=== PATIENT | female | born 2000 | race Caucasian/White ===

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

== ENCOUNTER 2021-08-02 16:08 | Inpatient (IN) | payer MEDICAID, OTHER ==
--- NOTE | 2021-08-02 17:15 | ED ---
General Adult HPI - General Chief complaint: Psychiatric Symptoms Stated complaint: Depression Time Seen by Provider: 08/02/21 16:56 Source: patient, police Mode of arrival: ambulatory Limitations: no limitations - History of Present Illness Initial comments: Dictation was produced using [employer] dictation software. please excuse any grammatical, word or spelling errors. Chief Complaint: 21-year-old female presents with suicidal ideation History of Present Illness: 21-year-old female she's been feeling sad and suicidal for the last several days. She highly contemplated suicide attempt on Sunday. She plans to cut her wrist and throat. She does see a counselor. She was told by her primary care doctor that if she doesn't feel comfortable talking to the cost that she come to her office. She went to PCPs office told to come to the emergency department. Patient states that she is sad and depressed for a myriad of reasons. Denies any homicidal ideation. Patient has no medical complaints. The ROS documented in this emergency department record has been reviewed and confirmed by me. Those systems with pertinent positive or negative responses have been documented in the HPI. All other systems are other negative and/or noncontributory. PHYSICAL EXAM: General Impression: Alert and oriented x3, not in acute distress HEENT: Normocephalic atraumatic, extra-ocular movements intact, pupils equal and reactive to light bilaterally, mucous membranes moist. Cardiovascular: Heart regular rate and rhythm Chest: Able to complete full sentences, no retractions, no tachypnea Abdomen: abdomen soft, non-tender, non-distended, no organomegaly Musculoskeletal: Pulses present and equal in all extremities, no peripheral edema Motor: no focal deficits noted Neurological: CN II-XII grossly intact, no focal motor or sensory deficits noted Skin: Intact with no visualized rashes Psych: Normal affect and mood ED course: 21-year-old female feeling suicidal. Physical examination is unremarkable. Vital signs are within acceptable limits. Patient medically cleared for EPS evaluation. Patient was advised by EPS and recommended psychiatric inpatient admission. - Related Data Home Medications Medication Instructions Recorded Confirmed Albuterol Sulfate [Proair Hfa] 2 puff INHALATION RT-Q6H PRN 08/02/21 08/02/21 Citalopram Hydrobromide [CeleXA] 20 mg PO DAILY 08/02/21 08/02/21 Pantoprazole Sodium [Protonix] 20 mg PO DAILY 08/02/21 08/02/21 Allergies Allergy/AdvReac Type Severity Reaction Status Date / Time Penicillins Allergy Anaphylaxis Verified 08/02/21 17:41 Review of Systems ROS Statement: Those systems with pertinent positive or pertinent negative responses have been documented in the HPI. ROS Other: All systems not noted in ROS Statement are negative. Past Medical History Past Medical History: Asthma History of Any Multi-Drug Resistant Organisms: None Reported Past Surgical History: No Surgical Hx Reported Past Psychological History: Anxiety, Depression Smoking Status: Current some day smoker Past Alcohol Use History: Heavy Past Drug Use History: Marijuana General Exam Limitations: no limitations Course Vital Signs 08/02/21 16:53 Temperature 98.7 F Pulse Rate 88 Respiratory 16 Rate Blood Pressure 126/88 O2 Sat by Pulse 100 Oximetry Medical Decision Making - Lab Data Lab Results 08/02/21 08/02/21 Range/Units 17:13 17:13 Urine HCG, Qual Not Detected (Not Detectd) Urine Opiates Screen Not Detected (NotDetected) Ur Oxycodone Screen Not Detected (NotDetected) Urine Methadone Screen Not Detected (NotDetected) Ur Propoxyphene Screen Not Detected (NotDetected) Ur Barbiturates Screen Not Detected (NotDetected) U Tricyclic Antidepress Not Detected (NotDetected) Ur Phencyclidine Scrn Not Detected (NotDetected) Ur Amphetamines Screen Not Detected (NotDetected) U Methamphetamines Scrn Not Detected (NotDetected) U Benzodiazepines Scrn Not Detected (NotDetected) Urine Cocaine Screen Not Detected (NotDetected) U Marijuana (THC) Screen Detected H (NotDetected) Disposition Clinical Impression: Suicidal ideation Disposition[facility] Condition: Fair Referrals: Cole Harmon MD [Primary Care Provider] - 1-2 days
[2021-08-02 17:34] LABS: Amphetamine Screen,Urine Not Detected (NotDetected); Barbiturate Screen,Urine Not Detected (NotDetected); Benzodiazepines Screen,Urine Not Detected (NotDetected); Cocaine Screen,Urine Not Detected (NotDetected); Methadone Screen, Urine Not Detected (NotDetected); Opiate Screen,Urine Not Detected (NotDetected); Oxycodone Screen, Urine Not Detected (NotDetected); Phencyclidine Screen,Urine Not Detected (NotDetected); Tricyclic Antidepressant,Urine Not Detected (NotDetected); Urn Cannabinoid Scrn Detected (NotDetected)
[2021-08-02] MEDS ORDERED: ACETAMINOPHEN TAB 325 MG TAB PO STA (17:41)
[2021-08-02] MEDS ORDERED: ALBUTEROL INHALER 60 PUFF/8 GM INHALER (MHU) INHALATION PRN (21:40)
[2021-08-02] MEDS ORDERED: ACETAMINOPHEN TAB 325 MG TAB PO PRN (21:41)
[2021-08-02] MEDS ORDERED: MAGNESIUM HYDROXIDE 2,400 MG/10 ML CUP PO PRN (21:41)
[2021-08-02] MEDS ORDERED: LORazepam 1 MG TAB PO PRN (21:41)
[2021-08-02] MEDS ORDERED: MAG HYDROX/AL HYDROX/SIMETH 30 ML CUP PO PRN (21:41)
[2021-08-02] MEDS ORDERED: LORazepam 2 MG/ML INJ IM PRN (21:44)
[2021-08-02] MEDS ORDERED: haloperidoL 1 MG TAB PO PRN (21:44)
[2021-08-02] MEDS ORDERED: HALOPERIDOL LACTATE 5 MG/ML 1 ML VIAL IM PRN (21:44)
[2021-08-03 00:08] VITALS: RESP 16
[2021-08-03 06:45] VITALS: PULSE 76
[2021-08-03 07:22] LABS: Basophils % (A) 1 %; Eosinophils # (A) 0.1 k/uL (0-0.7); Eosinophils % (A) 1 %; HCT 38.7 % (34.0-46.0); HGB 12.8 gm/dL (11.4-16.0); Lymphocytes # (A) 3.1 k/uL (1.0-4.8); Lymphocytes % (A) 50 %; MCHC 33.1 g/dL (31.0-37.0); MCV 99.7 fL (80.0-100.0); Mean Platelet Volume 7.3; Monocytes # (A) 0.3 k/uL (0-1.0); Monocytes % (A) 5 %; Neutrophils # (A) 2.7 k/uL (1.3-7.7); Neutrophils % (A) 42 %; Platelet Count 292 k/uL (150-450); RBC 3.88 m/uL (3.80-5.40); WBC 6.3 k/uL (3.8-10.6)
[2021-08-03 07:40] LABS: ALT 7 U/L (4-34); AST 20 U/L (14-36); African American GFR (CKD) >90 (>60 ml/min/1.73 sqM); Albumin 3.6 g/dL (3.5-5.0); Alkaline Phosphatase 53 U/L (38-126); Anion Gap 8 mmol/L; Blood Urea Nitrogen 10 mg/dL (7-17); Calcium 9.2 mg/dL (8.4-10.2); Carbon Dioxide 24 mmol/L (22-30); Chloride 107 mmol/L (98-107); Glucose 75 mg/dL (74-99); Non-African American GFR(CKD) >90 (>60 ml/min/1.73 sqM); Potassium 3.9 mmol/L (3.5-5.1); Sodium 139 mmol/L (137-145); Total Bilirubin 1.1 mg/dL (0.2-1.3); Total Protein 6.3 g/dL (6.3-8.2)
[2021-08-03] MEDS: CITALOPRAM HYDROBROMIDE 20 MG TAB PO SCH (08:11)
[2021-08-03] MEDS: PANTOPRAZOLE 40 MG TABLET PO SCH (08:11)
[2021-08-03] MEDS ORDERED: ONDANSETRON 4 MG TAB PO PRN (11:11)
[2021-08-03] MEDS ORDERED: ONDANSETRON 4 MG TAB PO STA (11:11)
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
[2021-08-03 12:37] LABS: Chol/HDL Ratio 2.34; Cholesterol 117 mg/dL (0-200)
--- NOTE | 2021-08-03 18:27 | CONS ---
CONSULTATION CHIEF COMPLAINT: Major depression with suicidal thoughts. HISTORY OF PRESENT ILLNESS: This 21-year-old -[place] female was in the office the day of admission, expressing extreme depression with suicidal thoughts. She agreed to go to the emergency room for evaluation and was thence admitted to the psych unit. REVIEW OF SYSTEMS: She denies any headaches, neurologic problems, chest pain, shortness of breath, abdominal pain, diarrhea, melena, etc. She is somewhat nauseated at this time. She denies any renal disease, hematuria, frequency, urgency, dysuria, incontinence, vaginal discharge or bleeding, diabetes, etc. Past medical history, family history, and personal and social histories demonstrate that she is ALLERGIC TO BUPROPION, PROZAC, and PENICILLIN. Current medications include citalopram 20 mg once a day, ProAir, Protonix 20 mg once a day, and vitamin D. The rest of her history is essentially unremarkable. She has been admitted for psychiatric problems in the past. She smokes cigarettes and drinks alcohol occasionally. PHYSICAL EXAMINATION: Blood pressure 120/80, pulse 71, respirations of 18. She is afebrile. In general she appeared to be well developed, well nourished, in no acute distress. Skin color was normal. Skin was warm and dry. Lymph nodes were not enlarged. Head, ears, eyes, nose, mouth and throat were normal. Neck veins were not distended. Chest was clear. Cardiac exam was normal. Abdomen was soft, nontender. Extremities were normal. Neurologically she is intact. She is admitted to the hospital with diagnoses: 1. Major depression. 2. History of asthma. 3. Nausea. RECOMMENDATIONS: None at this time. Her medications could be causing her nausea. MMODL / IJN: [id number] /
[2021-08-03] MEDS ORDERED: PRAZOSIN 1 MG CAP PO SCH (21:00)
[2021-08-04 07:24] VITALS: BP 98/60; TEMP 98
[2021-08-04] MEDS: PANTOPRAZOLE 40 MG TABLET PO SCH (08:20)
[2021-08-04] MEDS: CITALOPRAM HYDROBROMIDE 20 MG TAB PO SCH (08:20)
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
== END 2021-08-04 14:17 | disposition home or self-care (01) | DRG 885 ==
LOC: EC 16:08 → 3MHU 20:26
PROVIDERS: ADMIT Psychiatry & Neurology Psychiatry; ATTEND Psychiatry & Neurology Psychiatry
DX: F33.2 Major depressive disorder, recurrent severe without psychotic features (principal); R45.851 Suicidal ideations; Z20.822 Contact with and (suspected) exposure to COVID-19; F10.10 Alcohol abuse, uncomplicated; J45.909 Unspecified asthma, uncomplicated; F12.10 Cannabis abuse, uncomplicated; F17.200 Nicotine dependence, unspecified, uncomplicated; F43.10 Post-traumatic stress disorder, unspecified; R11.0 Nausea; F60.89 Other specific personality disorders; Z71.89 Other specified counseling; Z79.899 Other long term (current) drug therapy; Z91.5 Personal history of self-harm; Z71.41 Alcohol abuse counseling and surveillance of alcoholic; Z71.51 Drug abuse counseling and surveillance of drug abuser; Z88.0 Allergy status to penicillin; Z88.6 Allergy status to analgesic agent; Z88.8 Allergy status to other drugs, medicaments and biological substances
CPT/HCPCS: 80053; 80061; 80306; 81025; 82075; 83036; 84443; 85025; 87635; 99285

== ENCOUNTER 2021-09-09 22:39 | Emergency (ER) | payer OTHER ==
[2021-09-09 22:46] VITALS: TEMP 99.2
[2021-09-09] MEDS ORDERED: OXYMETAZOLINE 0.05% NASL SPRAY 1 SPRAY BOTTLE NASAL STA (23:13)
--- NOTE | 2021-09-10 00:11 | ED ---
ENT HPI - General Chief complaint: ENT Stated complaint: Bloody Nose Time Seen by Provider: 09/09/21 22:47 Source: family Mode of arrival: ambulatory Limitations: no limitations - History of Present Illness Initial comments: 21 year-old female patient presents to the emergency department for evaluation of nose bleed. States it has been bleeding for the last two hours. States she has been sick with nasal congestion and drainage for the last three days. Denies history of nose bleeds or abnormal or easy bruising. She states that she tried applying ice and holding pressure at the bridge of her nose without relief. She denies use of blood thinning medications. States she has been taking ibuprofen for the last three days. She denies any facial trauma. - Related Data Home Medications Medication Instructions Recorded Confirmed Albuterol Sulfate [Proair Hfa] 2 puff INHALATION RT-Q6H PRN 08/02/21 08/02/21 Pantoprazole Sodium [Protonix] 20 mg PO DAILY 08/02/21 08/02/21 Previous Rx's Medication Instructions Recorded Citalopram Hydrobromide [CeleXA] 20 mg PO DAILY 30 Days tab 08/04/21 Ondansetron [Zofran] 4 mg PO Q8HR PRN 3 Days tab 08/04/21 Prazosin [Minipress] 1 mg PO HS 30 Days cap 08/04/21 Allergies Allergy/AdvReac Type Severity Reaction Status Date / Time Penicillins Allergy Anaphylaxis Verified 09/09/21 22:46 Review of Systems ROS Statement: Those systems with pertinent positive or pertinent negative responses have been documented in the HPI. ROS Other: All systems not noted in ROS Statement are negative. Past Medical History Past Medical History: Asthma History of Any Multi-Drug Resistant Organisms: None Reported Past Surgical History: No Surgical Hx Reported Past Psychological History: Anxiety, Depression Smoking Status: Current some day smoker Past Alcohol Use History: Heavy Past Drug Use History: Marijuana General Exam Limitations: no limitations General appearance: alert, in no apparent distress, other (This is a well- developed, well-nourished adult female patient in no acute distress.) ENT exam: Present: normal oropharynx, mucous membranes moist, other (Bright red blood from bilateral nostrils) Respiratory exam: Present: normal lung sounds bilaterally. Absent: respiratory distress, wheezes, rales, rhonchi, stridor Cardiovascular Exam: Present: regular rate, normal rhythm, normal heart sounds. Absent: systolic murmur, diastolic murmur, rubs, gallop, clicks Neurological exam: Present: alert, oriented X3, CN II-XII intact Psychiatric exam: Present: normal affect, normal mood Skin exam: Present: warm, dry, intact, normal color. Absent: rash Course Vital Signs 09/09/21 09/10/21 22:42 00:11 Temperature 99.2 F Pulse Rate 85 63 Respiratory 20 18 Rate Blood Pressure 147/98 154/89 O2 Sat by Pulse 100 99 Oximetry Medical Decision Making - Medical Decision Making 21-year-old female patient presents to the emergency department today for evaluation of nosebleed. Physical examination did reveal bilateral red blood from bilateral nostrils. It had patient brought all the blood clots, packed with Afrin soaked gauze afte spraying with Afrin. Apply pressure for approximately 20 minutes. Upon reevaluation bleeding had ceased. She was monitored again for another 30 minutes, was able to ablate the department without any rebleeding. She is discharged to follow-up with her primary care physician for recheck in 1-2 days. Instructed to follow-up with ENT if she has persistent bleeding. Return p arameters were discussed in detail. She verbalizes understanding and agrees with this plan. My attending is Dr. Peralta. Disposition Clinical Impression: Epistaxis Disposition: HOME SELF-CARE Condition: Good Instructions (If sedation given, give patient instructions): Nosebleed (ED) Additional Instructions: Follow-up with ENT if needed. Follow up with the primary care physician for recheck in 1-2 days. Return for any new, worsening, or concerning symptoms. Is patient prescribed a controlled substance at d/c from ED?: No Referrals: Cole Harmon MD [Primary Care Provider] - 1-2 days Dillon Enrique MD [STAFF PHYSICIAN] - 1-2 days Time of Disposition: 00:11
[2021-09-10 00:12] VITALS: BP 154/89; PULSE 63; RESP 18
== END 2021-09-10 00:32 | disposition home or self-care (01) ==
LOC: EC 22:39
DX: R04.0 Epistaxis (principal); F17.200 Nicotine dependence, unspecified, uncomplicated; J45.909 Unspecified asthma, uncomplicated; Z88.0 Allergy status to penicillin
CPT/HCPCS: 99283

== ENCOUNTER 2021-11-17 23:46 | Emergency (ER) | payer OTHER ==
[2021-11-18] VITALS: RESP 18
[2021-11-18] MEDS ORDERED: ACETAMINOPHEN TAB 500 MG TAB PO STA (00:01)
[2021-11-18] MEDS ORDERED: IBUPROFEN 600 MG TAB PO STA (01:16)
[2021-11-18] MEDS ORDERED: ONDANSETRON 4 MG ODT STARTER PACK 2 TAB BTL PO STA (01:16)
[2021-11-18] MEDS ORDERED: DICYCLOMINE 20 MG TAB PO STA (01:17)
--- NOTE | 2021-11-18 01:18 | ED ---
General Adult HPI - General Chief complaint: Fever Stated complaint: Right side abdominal pain Time Seen by Provider: 11/18/21 01:03 Source: patient Mode of arrival: wheelchair Limitations: physical limitation - History of Present Illness Initial comments: 21-year-old female patient presents to the emergency department today for evaluation of fever, chills, abdominal cramping, diarrhea. States symptoms started earlier today. She does report mild intermittent cough. States people in her home are sick with similar symptoms. She denies taking any medication for his symptoms. Denies any chance of . Patient denies any recent rash, shortness of breath, chest pain, constipation, back pain, numbness, tingling, dizziness, weakness, hematuria, dysuria, urinary urgency, urinary frequency, headache, visual changes, or any other complaints. - Related Data Home Medications Medication Instructions Recorded Confirmed Albuterol Sulfate [Proair Hfa] 2 puff INHALATION RT-Q6H PRN 08/02/21 08/02/21 Pantoprazole Sodium [Protonix] 20 mg PO DAILY 08/02/21 08/02/21 Previous Rx's Medication Instructions Recorded Citalopram Hydrobromide [CeleXA] 20 mg PO DAILY 30 Days tab 08/04/21 Ondansetron [Zofran] 4 mg PO Q8HR PRN 3 Days tab 08/04/21 Prazosin [Minipress] 1 mg PO HS 30 Days cap 08/04/21 Dicyclomine [Bentyl] 20 mg PO QID #20 tablet 11/18/21 Ondansetron [Zofran ODT] 4 mg PO Q8HR PRN #10 tab 11/18/21 Allergies Allergy/AdvReac Type Severity Reaction Status Date / Time Penicillins Allergy Anaphylaxis Verified 11/18/21 00:00 Review of Systems ROS Statement: Those systems with pertinent positive or pertinent negative responses have been documented in the HPI. ROS Other: All systems not noted in ROS Statement are negative. Past Medical History Past Medical History: Asthma History of Any Multi-Drug Resistant Organisms: None Reported Past Surgical History: No Surgical Hx Reported Past Psychological History: Anxiety, Depression Smoking Status: Current some day smoker Past Alcohol Use History: Occasional Past Drug Use History: Marijuana General Exam Limitations: physical limitation General appearance: alert, in no apparent distress, other (This is a well- developed, well-nourished adult female in no acute distress.) Eye exam: Present: normal appearance, PERRL, EOMI. Absent: scleral icterus, conjunctival injection, periorbital swelling ENT exam: Present: normal exam, normal oropharynx, mucous membranes moist, TM's normal bilaterally Respiratory exam: Present: normal lung sounds bilaterally. Absent: respiratory distress, wheezes, rales, rhonchi, stridor Cardiovascular Exam: Present: regular rate, normal rhythm, normal heart sounds. Absent: systolic murmur, diastolic murmur, rubs, gallop, clicks GI/Abdominal exam: Present: soft, normal bowel sounds. Absent: distended, tenderness, guarding, rebound, rigid Neurological exam: Present: alert, oriented X3, CN II-XII intact Psychiatric exam: Present: normal affect, normal mood Skin exam: Present: warm, dry, intact, normal color. Absent: rash Course Vital Signs 11/17/21 23:56 Temperature 101.6 F H Pulse Rate 97 Respiratory 18 Rate Blood Pressure 127/75 O2 Sat by Pulse 100 Oximetry Medical Decision Making - Medical Decision Making 21-year-old female patient presents to the emergency department today for evaluation of fever, abdominal pain, diarrhea, cough. Physical examination is unremarkable. Lungs are clear to auscultation with good air movement. Abdomen is soft and nontender. She did test positive for COVID-19. She will be given Zofran, Bentyl, antipyretic medication. She is discharged with prescription for the same. She is instructed to follow-up the primary care physician for recheck in 1-2 days. Return parameters were discussed in detail. She verbalizes understanding and agrees with this plan. My attending is Dr. Peralta. - Lab Data Lab Results 11/18/21 Range/Units 00:01 Coronavirus (PCR) Detected A (Not Detectd) Disposition Clinical Impression: COVID-19 Disposition: HOME SELF-CARE Condition: Good Instructions (If sedation given, give patient instructions): Coronavirus Disease 2019 (COVID-19), Fever in Adults (ED) Additional Instructions: Tips to help you feel better: -Maintain adequate fluid intake - especially water. -Rest, you are healing your body will require extra sleep. -Eat even if you do not feel like it - broth, jello, toast are fine if you cannot eat full meals. -Take tylenol and motrin alternating (if you have no allergies or have not been instructed to avoid these medications) to help with body aches and fevers. -Obtain over the counter vitamin C, zinc, and vitamin D3. -Take medications as prescribed. Follow-up with your primary care physician for recheck in 1-2 days. Return for any new, worsening, or concerning symptoms. Prescriptions: Dicyclomine [Bentyl] 20 mg PO QID #20 tablet Ondansetron [Zofran ODT] 4 mg PO Q8HR PRN #10 tab PRN Reason: Nausea Is patient prescribed a controlled substance at d/c from ED?: No Referrals: Cole Harmon MD [Primary Care Provider] - 1-2 days Time of Disposition: 01:18
[2021-11-18 01:57] VITALS: BP 119/75; PULSE 82; TEMP 98.4
== END 2021-11-18 01:59 | disposition home or self-care (01) ==
LOC: EC 23:46
DX: U07.1 COVID-19 (principal); F17.200 Nicotine dependence, unspecified, uncomplicated; Z79.1 Long term (current) use of non-steroidal anti-inflammatories (NSAID); Z88.0 Allergy status to penicillin; Z88.8 Allergy status to other drugs, medicaments and biological substances
CPT/HCPCS: 87635; 99284; S0119; 99283

== ENCOUNTER 2023-03-06 02:49 | Emergency (ER) | payer OTHER ==
[2023-03-06 02:56] VITALS: RESP 18
--- NOTE | 2023-03-06 04:18 | XR ---
EXAM: XR Chest, 2 Views CLINICAL HISTORY: ITS.REASON XR Reason: chest pain TECHNIQUE: Frontal and lateral views of the chest. COMPARISON: No relevant prior studies available. FINDINGS: Lungs: No consolidation or mass. Pleural space: No effusion. Heart: No cardiomegaly. Bones/joints: No acute findings. IMPRESSION: No acute cardiopulmonary process.
--- NOTE | 2023-03-06 04:27 | ED ---
Chest Pain HPI - General Chief Complaint: Chest Pain Stated Complaint: Difficulty Breathing, Chest Pain, back pain Time Seen by Provider: 03/06/23 03:10 Source: patient, family Mode of arrival: ambulatory Limitations: no limitations - History of Present Illness Initial Comments: This patient is a 22-year-old woman who presents with complaint that she is having spasms. She states that it feels like she is having cramping and spasming on the left side of her chest and back. It started in the evening and when it continued she felt she should be seen here. She has not noted a coming symptoms other than when the spasms come on it limits her taking a deep breath. No fever or chills. No cough, sputum or hemoptysis. MD Complaint: chest pain -: hour(s) Onset: during rest Pain Location: left chest Pain Radiation: none Quality: tightness Consistency: intermittent, now resolved Improves With: nothing Worsens With: movement Treatments Prior to Arrival: none - Related Data Home Medications Medication Instructions Recorded Confirmed Albuterol Sulfate [Proair Hfa] 2 puff INHALATION RT-Q6H PRN 08/02/21 08/02/21 Pantoprazole Sodium [Protonix] 20 mg PO DAILY 08/02/21 08/02/21 Previous Rx's Medication Instructions Recorded Citalopram Hydrobromide [CeleXA] 20 mg PO DAILY 30 Days tab 08/04/21 Ondansetron [Zofran] 4 mg PO Q8HR PRN 3 Days tab 08/04/21 Prazosin [Minipress] 1 mg PO HS 30 Days cap 08/04/21 Dicyclomine [Bentyl] 20 mg PO QID #20 tablet 11/18/21 Ondansetron [Zofran ODT] 4 mg PO Q8HR PRN #10 tab 11/18/21 Ibuprofen [Motrin] 600 mg PO Q8HR PRN #15 tab 03/06/23 Allergies Allergy/AdvReac Type Severity Reaction Status Date / Time Penicillins Allergy Anaphylaxis Verified 03/06/23 02:57 Review of Systems ROS Statement: Those systems with pertinent positive or pertinent negative responses have been documented in the HPI. ROS Other: All systems not noted in ROS Statement are negative. Constitutional: Denies: fever, chills, weakness Respiratory: Reports: as per HPI, dyspnea. Denies: cough, wheezes, hemoptysis Cardiovascular: Reports: as per HPI, chest pain. Denies: palpitations, orthopnea, edema, syncope Gastrointestinal: Denies: abdominal pain, nausea, vomiting Musculoskeletal: Reports: as per HPI, back pain Skin: Denies: rash Neurological: Denies: headache, weakness EKG Findings - EKG Results: EKG: interpreted by ALIA, sinus rhythm (With sinus arrhythmia. Rate 61 bpm), normal axis, normal QRS, normal ST/T Past Medical History Past Medical History: Asthma History of Any Multi-Drug Resistant Organisms: None Reported Past Surgical History: No Surgical Hx Reported Past Psychological History: Anxiety, Depression Smoking Status: Current some day smoker, Vaper Past Alcohol Use History: Occasional Past Drug Use History: Marijuana General Exam Limitations: no limitations General appearance: alert, in no apparent distress Head exam: Present: atraumatic, normocephalic Eye exam: Present: normal appearance. Absent: scleral icterus, conjunctival injection Neck exam: Present: normal inspection Respiratory exam: Present: normal lung sounds bilaterally, chest wall tenderness. Absent: respiratory distress, wheezes, rales, rhonchi, stridor, accessory muscle use Cardiovascular Exam: Present: regular rate, normal rhythm, normal heart sounds. Absent: systolic murmur, diastolic murmur, rubs, gallop GI/Abdominal exam: Present: soft. Absent: distended, tenderness, guarding, rebound, rigid, mass Back exam: Present: normal inspection, paraspinal tenderness. Absent: CVA tenderness (R), CVA tenderness (L) Neurological exam: Present: alert Skin exam: Present: warm, dry, intact, normal color. Absent: rash Course Vital Signs 03/06/23 03/06/23 03/06/23 02:50 03:48 03:53 Temperature 98.1 F 98.7 F Pulse Rate 88 68 Pulse Rate [ 71 Right Supine Art Historian ] Respiratory 18 18 Rate Blood Pressure 126/58 121/80 O2 Sat by Pulse 100 99 Oximetry 03/06/23 04:47 Temperature 98.9 F Pulse Rate 66 Pulse Rate [ Right Supine Art Historian ] Respiratory 18 Rate Blood Pressure 114/67 O2 Sat by Pulse 100 Oximetry Chest Pain [facility] - MDM This patient is a 22-year-old woman with no underlying medical issues presenting with spasms of the left side of her thorax that are intermittent. Not having symptoms in the department. There is mild tenderness that reproduces which she expresses when the ribs are palpated. The patient had chest x-ray here that is negative for infiltrate, and pneumothorax, rib fracture as interpreted by myself. The patient is feeling better, we discussed appropriate further care and follow- up as well as return parameters Was pt. sent in by a medical professional or institution (GARY Neumann, TRAY DRIER OPERATOR, urgent care, hospital, or halfway...) When possible be specific @ -[No] Did you speak to anyone other than the patient for history (EMS, parent, family, police, friend...)? What history was obtained from this source @ -[No] Did you review nursing and triage notes (agree or disagree)? Why? @ -[I reviewed and agree with nursing and triage notes] Were old charts reviewed (outside hosp., previous admission, EMS record, old EKG, old radiological studies, urgent care reports/EKG's, halfway records)? Report findings @ -[No old charts were reviewed] Differential Diagnosis (chest pain, altered mental status, abdominal pain women, abdominal pain men, vaginal bleeding, weakness, fever, dyspnea, syncope, headache, dizziness, GI bleed, back pain, seizure, CVA, palpatations, mental health, musculoskeletal)? @ -[The differential diagnosis includes musculoskeletal chest pains, pleuritic chest pain, pericarditis, amongst other conditions EKG interpreted by me (3pts min.). @ -[As above] X-rays interpreted by me (1pt min.). @ -[As above CT interpreted by me (1pt min.). @ -[None done] U/S interpreted by me (1pt. min.). @ -[None done] What testing was considered but not performed or refused? (CT, X-rays, U/S, labs)? Why? @ -[None] What meds were considered but not given or refused? Why? @ -[None] Did you discuss the management of the patient with other professionals (professionals i.e. GARY Neumann, TRAY DRIER OPERATOR, lab, RT, psych nurse, clinical social work aide, financial services auditor, teacher, postal sorting officer, employment case manager)? Give summary @ -[No] Was smoking cessation discussed for >3mins.? @ -[No] Was critical care preformed (if so, how long)? @ -[No] Were there social determinants of health that impacted care today? How? (Homelessness, low income, unemployed, alcoholism, drug addiction, transportation, low edu. Level, literacy, decrease access to med. care, snf, rehab)? @ -[No] Was there de-escalation of care discussed even if they declined (Discuss DNR or withdrawal of care, Hospice)? DNR status @ -[No] What co-morbidities impacted this encounter? (DM, HTN, Smoking, COPD, CAD, Cancer, CVA, ARF, Chemo, Hep., AIDS, mental health diagnosis, sleep apnea, morb id obesity)? @ -[None] Was patient admitted / discharged? Hospital course, mention meds given and route, prescriptions, significant lab abnormalities, going to OR and other pertinent info. @ -Discharged Undiagnosed new problem with uncertain prognosis? @ -[No] Drug Therapy requiring intensive monitoring for toxicity (Heparin, Nitro, Insulin, Cardizem)? @ -[No] Were any procedures done? @ -[No] Diagnosis/symptom? @ -[Chest wall pain Acute, or Chronic, or Acute on Chronic? @ -[Acute Uncomplicated (without systemic symptoms) or Complicated (systemic symptoms)? @ -[Uncomplicated Side effects of treatment? @ -[No] Exacerbation, Progression, or Severe Exacerbation? @ -[No] Poses a threat to life or bodily function? How? (Chest pain, [place], [place], pneumonia, PE, COPD, DKA, ARF, appy, cholecystitis, CVA, Diverticulitis, Homicidal, Suicidal, threat to staff... and all critical care pts) @ -[No] Disposition Clinical Impression: Chest pain Disposition: HOME SELF-CARE Condition: Good Instructions (If sedation given, give patient instructions): Chest Pain (ED) Prescriptions: Ibuprofen [Motrin] 600 mg PO Q8HR PRN #15 tab PRN Reason: Pain Is patient prescribed a controlled substance at d/c from ED?: No Referrals: Cole Harmon MD [Primary Care Provider] - 1-2 days
[2023-03-06 04:49] VITALS: BP 114/67; PULSE 66; TEMP 98.9
== END 2023-03-06 04:49 | disposition home or self-care (01) ==
LOC: EC 02:49
DX: R07.89 Other chest pain (principal); J45.909 Unspecified asthma, uncomplicated; F41.9 Anxiety disorder, unspecified; F32.A Depression, unspecified; F17.290 Nicotine dependence, other tobacco product, uncomplicated; F12.90 Cannabis use, unspecified, uncomplicated; Z79.899 Other long term (current) drug therapy; Z88.0 Allergy status to penicillin
CPT/HCPCS: 71046; 93005; 99285

== ENCOUNTER 2023-05-27 21:04 | Emergency (ER) | payer OTHER ==
[2023-05-27] MEDS ORDERED: SODIUM CHLORIDE 0.9% 1,000 ML IV STA (21:57)
[2023-05-27] MEDS ORDERED: MECLIZINE 12.5 MG TAB PO STA (21:57)
--- NOTE | 2023-05-27 22:36 | ED ---
General Adult HPI - General Chief complaint: Nausea/Vomiting/Diarrhea Stated complaint: Fatigued, feeling off Time Seen by Provider: 05/27/23 21:14 Source: patient Mode of arrival: ambulatory Limitations: no limitations - History of Present Illness Initial comments: 23 year old female presents with several episodes of dizziness, diaphoresis, palpitations and sensation that she is going to pass out. States it has been going on x 5 months. episodes last for an hour. Has associated blurred vision. no chest pain. mild shortness of breath. no fevers. admits thc use but states her symptoms are not associated with smoking. denies concern for - Related Data Home Medications Medication Instructions Recorded Confirmed Albuterol Sulfate [Proair Hfa] 2 puff INHALATION RT-Q6H PRN 08/02/21 08/02/21 Pantoprazole Sodium [Protonix] 20 mg PO DAILY 08/02/21 08/02/21 Previous Rx's Medication Instructions Recorded Citalopram Hydrobromide [CeleXA] 20 mg PO DAILY 30 Days tab 08/04/21 Ondansetron [Zofran] 4 mg PO Q8HR PRN 3 Days tab 08/04/21 Prazosin [Minipress] 1 mg PO HS 30 Days cap 08/04/21 Dicyclomine [Bentyl] 20 mg PO QID #20 tablet 11/18/21 Ondansetron [Zofran ODT] 4 mg PO Q8HR PRN #10 tab 11/18/21 Ibuprofen [Motrin] 600 mg PO Q8HR PRN #15 tab 03/06/23 Allergies Allergy/AdvReac Type Severity Reaction Status Date / Time Penicillins Allergy Anaphylaxis Verified 03/06/23 02:57 Review of Systems ROS Statement: Those systems with pertinent positive or pertinent negative responses have been documented in the HPI. ROS Other: All systems not noted in ROS Statement are negative. Past Medical History Past Medical History: Asthma History of Any Multi-Drug Resistant Organisms: None Reported Past Surgical History: No Surgical Hx Reported Past Psychological History: Anxiety, Depression Smoking Status: Current some day smoker, Vaper Past Alcohol Use History: Occasional Past Drug Use History: Marijuana General Exam Limitations: no limitations General appearance: alert, in no apparent distress Head exam: Present: atraumatic, normocephalic, normal inspection Eye exam: Present: normal appearance, PERRL, EOMI. Absent: scleral icterus, conjunctival injection, periorbital swelling ENT exam: Present: normal exam, mucous membranes moist Neck exam: Present: normal inspection. Absent: tenderness, meningismus, lymphadenopathy Respiratory exam: Present: normal lung sounds bilaterally. Absent: respiratory distress, wheezes, rales, rhonchi, stridor Cardiovascular Exam: Present: regular rate, normal rhythm, normal heart sounds. Absent: systolic murmur, diastolic murmur, rubs, gallop, clicks GI/Abdominal exam: Present: soft, normal bowel sounds. Absent: distended, tenderness, guarding, rebound, rigid Extremities exam: Present: normal inspection, full ROM, normal capillary refill. Absent: tenderness, pedal edema, joint swelling, calf tenderness Back exam: Present: normal inspection Neurological exam: Present: alert, oriented X3, CN II-XII intact Psychiatric exam: Present: normal affect, normal mood Skin exam: Present: warm, dry, intact, normal color. Absent: rash Course Vital Signs 05/27/23 05/28/23 21:12 00:57 Temperature 98.5 F 98.6 F Pulse Rate 70 75 Respiratory 20 16 Rate Blood Pressure 148/98 127/74 O2 Sat by Pulse 99 100 Oximetry Medical Decision Making - Medical Decision Making Was pt. sent in by a medical professional or institution (, PA, RESEARCH COORDINATOR, urgent care, hospital, or shelter...) When possible be specific @ -No Did you speak to anyone other than the patient for history (EMS, parent, family, police, friend...)? What history was obtained from this source @ -No Did you review nursing and triage notes (agree or disagree)? Why? @ -I reviewed and agree with nursing and triage notes Were old charts reviewed (outside hosp., previous admission, EMS record, old EKG, old radiological studies, urgent care reports/EKG's, shelter records)? Report findings @ -No old charts were reviewed Differential Diagnosis (chest pain, altered mental status, abdominal pain women, abdominal pain men, vaginal bleeding, weakness, fever, dyspnea, syncope, headache, dizziness, GI bleed, back pain, seizure, CVA, palpatations, mental health, musculoskeletal)? @ -covid, pneumonia, , thyroid disorder, hypoglycemia, electrolyte abnormality EKG interpreted by me (3pts min.). @ -Yes and demonstrates sinus enmanuel. rate of 58. no st segment elevation or depression X-rays interpreted by me (1pt min.). @ -no acute process CT interpreted by me (1pt min.). @ -None done U/S interpreted by me (1pt. min.). @ -None done What testing was considered but not performed or refused? (CT, X-rays, U/S, labs)? Why? @ -None What meds were considered but not given or refused? Why? @ -None Did you discuss the management of the patient with other professionals (professionals i.e. , PA, RESEARCH COORDINATOR, lab, RT, psych nurse, outreach and education social worker, tandem mill operator, teacher, airfield services officer, protective services case worker)? Give summary @ -no Was smoking cessation discussed for >3mins.? @ -No Was critical care preformed (if so, how long)? @ -No Were there social determinants of health that impacted care today? How? (Homelessness, low income, unemployed, alcoholism, drug addiction, transportation, low edu. Level, literacy, decrease access to med. care, penitentiary, rehab)? @ -No Was there de-escalation of care discussed even if they declined (Discuss DNR or withdrawal of care, Hospice)? DNR status @ -No What co-morbidities impacted this encounter? (DM, HTN, Smoking, COPD, CAD, Cancer, CVA, ARF, Chemo, Hep., AIDS, mental health diagnosis, sleep apnea, morbid obesity)? @ -none Was patient admitted / discharged? Hospital course, mention meds given and route, prescriptions, significant lab abnormalities, going to OR and other pertinent info. @ -discharged. suspected episodes likely due to hypoglycemia. patient needs to eat nutritious meals and follow up with pcp in 2-4 days Undiagnosed new problem with uncertain prognosis? @ -yes Drug Therapy requiring intensive monitoring for toxicity (Heparin, Nitro, Insulin, Cardizem)? @ -No Were any procedures done? @ -No Diagnosis/symptom? @ -acute pre syncope, hypoglycemia Acute, or Chronic, or Acute on Chronic? @ -acute Uncomplicated (without systemic symptoms) or Complicated (systemic symptoms)? @ -complicated Side effects of treatment? @ -No Exacerbation, Progression, or Severe Exacerbation? @ -No Poses a threat to life or bodily function? How? (Chest pain, [place], [place], pneumonia, PE, COPD, DKA, ARF, appy, cholecystitis, CVA, Diverticulitis, Homicidal, Suicidal, threat to staff... and all critical care pts) @ -No - Lab Data Result diagrams: 05/27/23 23:07 05/27/23 23:07 Lab Results 05/27/23 05/27/23 05/27/23 Range/Units 22:26 22:33 22:33 WBC (3.8-10.6) k/uL RBC (3.80-5.40) m/uL Hgb (11.4-16.0) gm/dL Hct (34.0-46.0) % MCV (80.0-100.0) fL MCH (25.0-35.0) pg MCHC (31.0-37.0) g/dL RDW (11.5-15.5) % Plt Count (150-450) k/uL MPV Neutrophils % % Lymphocytes % % Monocytes % % Eosinophils % % Basophils % % Neutrophils # (1.3-7.7) k/uL Lymphocytes # (1.0-4.8) k/uL Monocytes # (0-1.0) k/uL Eosinophils # (0-0.7) k/uL Basophils # (0-0.2) k/uL Sodium (137-145) mmol/L Potassium (3.5-5.1) mmol/L Chloride (98-107) mmol/L Carbon Dioxide (22-30) mmol/L Anion Gap mmol/L BUN (7-17) mg/dL Creatinine (0.52-1.04) mg/dL Est GFR (CKD-EPI)AfAm (>60 ml/min/1.73 sqM) Est GFR (CKD-EPI)NonAf (>60 ml/min/1.73 sqM) Glucose (74-99) mg/dL Plasma Lactic Acid Ignacio (0.7-2.0) mmol/L Calcium (8.4-10.2) mg/dL Total Bilirubin (0.2-1.3) mg/dL AST (14-36) U/L ALT (4-34) U/L Alkaline Phosphatase (38-126) U/L Troponin I (0.000-0.034) ng/mL Total Protein (6.3-8.2) g/dL Albumin (3.5-5.0) g/dL TSH (0.465-4.680) mIU/L Urine Color Light Yellow Urine Appearance Cloudy H (Clear) Urine pH 6.5 (5.0-8.0) Ur Specific Plover 1.014 (1.001-1.035) Urine Protein Negative (Negative) Urine Glucose (UA) Negative (Negative) Urine Ketones Negative (Negative) Urine Blood Negative (Negative) Urine Nitrite Negative (Negative) Urine Bilirubin Negative (Negative) Urine Urobilinogen <2.0 (<2.0) mg/dL Ur Leukocyte Esterase Negative (Negative) Urine WBC 1 (0-5) /hpf Ur Squamous Epith Cells 1 (0-4) /hpf Urine Bacteria Rare H (None) /hpf Urine Mucus Rare H (None) /hpf Urine HCG, Qual Not Detected (Not Detectd) Urine Opiates Screen Not Detected (NotDetected) Ur Oxycodone Screen Not Detected (NotDetected) Urine Methadone Screen Not Detected (NotDetected) Ur Propoxyphene Screen Not Detected (NotDetected) Ur Barbiturates Screen Not Detected (NotDetected) U Tricyclic Antidepress Not Detected (NotDetected) Ur Phencyclidine Scrn Not Detected (NotDetected) Ur Amphetamines Screen Not Detected (NotDetected) U Methamphetamines Scrn Not Detected (NotDetected) U Benzodiazepines Scrn Not Detected (NotDetected) Urine Cocaine Screen Not Detected (NotDetected) U Marijuana (THC) Screen Detected H (NotDetected) Coronavirus (PCR) Not Detected (Not Detectd) 05/27/23 05/27/23 05/27/23 Range/Units 23:07 23:07 23:07 WBC 6.8 (3.8-10.6) k/uL RBC 4.46 (3.80-5.40) m/uL Hgb 14.6 (11.4-16.0) gm/dL Hct 43.5 (34.0-46.0) % MCV 97.4 (80.0-100.0) fL MCH 32.7 (25.0-35.0) pg MCHC 33.6 (31.0-37.0) g/dL RDW 12.4 (11.5-15.5) % Plt Count 254 (150-450) k/uL MPV 8.1 Neutrophils % 54 % Lymphocytes % 37 % Monocytes % 5 % Eosinophils % 2 % Basophils % 0 % Neutrophils # 3.7 (1.3-7.7) k/uL Lymphocytes # 2.5 (1.0-4.8) k/uL Monocytes # 0.4 (0-1.0) k/uL Eosinophils # 0.1 (0-0.7) k/uL Basophils # 0.0 (0-0.2) k/uL Sodium 139 (137-145) mmol/L Potassium 4.1 (3.5-5.1) mmol/L Chloride 110 H (98-107) mmol/L Carbon Dioxide 18 L (22-30) mmol/L Anion Gap 11 mmol/L BUN 12 (7-17) mg/dL Creatinine 0.68 (0.52-1.04) mg/dL Est GFR (CKD-EPI)AfAm >90 (>60 ml/min/1.73 sqM) Est GFR (CKD-EPI)NonAf >90 (>60 ml/min/1.73 sqM) Glucose 70 L (74-99) mg/dL Plasma Lactic Acid Ignacio 1.7 (0.7-2.0) mmol/L Calcium 9.2 (8.4-10.2) mg/dL Total Bilirubin 1.1 (0.2-1.3) mg/dL AST 22 (14-36) U/L ALT 13 (4-34) U/L Alkaline Phosphatase 54 (38-126) U/L Troponin I (0.000-0.034) ng/mL Total Protein 6.8 (6.3-8.2) g/dL Albumin 4.0 (3.5-5.0) g/dL TSH 2.170 (0.465-4.680) mIU/L Urine Color Urine Appearance (Clear) Urine pH (5.0-8.0) Ur Specific Plover (1.001-1.035) Urine Protein (Negative) Urine Glucose (UA) (Negative) Urine Ketones (Negative) Urine Blood (Negative) Urine Nitrite (Negative) Urine Bilirubin (Negative) Urine Urobilinogen (<2.0) mg/dL Ur Leukocyte Esterase (Negative) Urine WBC (0-5) /hpf Ur Squamous Epith Cells (0-4) /hpf Urine Bacteria (None) /hpf Urine Mucus (None) /hpf Urine HCG, Qual (Not Detectd) Urine Opiates Screen (NotDetected) Ur Oxycodone Screen (NotDetected) Urine Methadone Screen (NotDetected) Ur Propoxyphene Screen (NotDetected) Ur Barbiturates Screen (NotDetected) U Tricyclic Antidepress (NotDetected) Ur Phencyclidine Scrn (NotDetected) Ur Amphetamines Screen (NotDetected) U Methamphetamines Scrn (NotDetected) U Benzodiazepines Scrn (NotDetected) Urine Cocaine Screen (NotDetected) U Marijuana (THC) Screen (NotDetected) Coronavirus (PCR) (Not Detectd) 05/27/23 Range/Units 23:07 WBC (3.8-10.6) k/uL RBC (3.80-5.40) m/uL Hgb (11.4-16.0) gm/dL Hct (34.0-46.0) % MCV (80.0-100.0) fL MCH (25.0-35.0) pg MCHC (31.0-37.0) g/dL RDW (11.5-15.5) % Plt Count (150-450) k/uL MPV Neutrophils % % Lymphocytes % % Monocytes % % Eosinophils % % Basophils % % Neutrophils # (1.3-7.7) k/uL Lymphocytes # (1.0-4.8) k/uL Monocytes # (0-1.0) k/uL Eosinophils # (0-0.7) k/uL Basophils # (0-0.2) k/uL Sodium (137-145) mmol/L Potassium (3.5-5.1) mmol/L Chloride (98-107) mmol/L Carbon Dioxide (22-30) mmol/L Anion Gap mmol/L BUN (7-17) mg/dL Creatinine (0.52-1.04) mg/dL Est GFR (CKD-EPI)AfAm (>60 ml/min/1.73 sqM) Est GFR (CKD-EPI)NonAf (>60 ml/min/1.73 sqM) Glucose (74-99) mg/dL Plasma Lactic Acid Ignacio (0.7-2.0) mmol/L Calcium (8.4-10.2) mg/dL Total Bilirubin (0.2-1.3) mg/dL AST (14-36) U/L ALT (4-34) U/L Alkaline Phosphatase (38-126) U/L Troponin I <0.012 (0.000-0.034) ng/mL Total Protein (6.3-8.2) g/dL Albumin (3.5-5.0) g/dL TSH (0.465-4.680) mIU/L Urine Color Urine Appearance (Clear) Urine pH (5.0-8.0) Ur Specific Plover (1.001-1.035) Urine Protein (Negative) Urine Glucose (UA) (Negative) Urine Ketones (Negative) Urine Blood (Negative) Urine Nitrite (Negative) Urine Bilirubin (Negative) Urine Urobilinogen (<2.0) mg/dL Ur Leukocyte Esterase (Negative) Urine WBC (0-5) /hpf Ur Squamous Epith Cells (0-4) /hpf Urine Bacteria (None) /hpf Urine Mucus (None) /hpf Urine HCG, Qual (Not Detectd) Urine Opiates Screen (NotDetected) Ur Oxycodone Screen (NotDetected) Urine Methadone Screen (NotDetected) Ur Propoxyphene Screen (NotDetected) Ur Barbiturates Screen (NotDetected) U Tricyclic Antidepress (NotDetected) Ur Phencyclidine Scrn (NotDetected) Ur Amphetamines Screen (NotDetected) U Methamphetamines Scrn (NotDetected) U Benzodiazepines Scrn (NotDetected) Urine Cocaine Screen (NotDetected) U Marijuana (THC) Screen (NotDetected) Coronavirus (PCR) (Not Detectd) Disposition Clinical Impression: Dizziness, Hypoglycemia Disposition: HOME SELF-CARE Condition: Stable Instructions (If sedation given, give patient instructions): Non-diabetic Hypoglycemia (ED) Additional Instructions: When you start having episodes like this, please eat something. Take a sugar tablet which you can purchase [id number] at a drugstore. You should also eat something nutritious with it. Follow up with your doctor for further management for this. return for any new or worsening symptoms Is patient prescribed a controlled substance at d/c from ED?: No Referrals: Cole Harmon MD [Primary Care Provider] - 1-2 days Time of Disposition: 00:44
[2023-05-27 23:25] LABS: Appearance,Urine Cloudy (Clear); Bacteria,Urine Rare /hpf; Bilirubin,Urine Negative (Negative); Blood,Urine Negative (Negative); Color,Urine Light Yellow; Glucose,Urine (UA) Negative (Negative); Ketones,Urine Negative (Negative); Leukocyte Esterase,Urine Negative (Negative); Mucus,Urine Rare /hpf; Nitrite,Urine Negative (Negative); PH, Urine 6.5 (5.0-8.0); Protein,Urine Negative (Negative); Specific Gravity,Urine 1.014 (1.001-1.035); Squamous Epithelial Cell,Urine 1 /hpf (0-4); Urobilinogen,Urine <2.0 mg/dL (<2.0); WBC,Urine 1 /hpf (0-5)
[2023-05-27 23:45] LABS: Basophils % (A) 0 %; Eosinophils # (A) 0.1 k/uL (0-0.7); Eosinophils % (A) 2 %; HCT 43.5 % (34.0-46.0); HGB 14.6 gm/dL (11.4-16.0); Lymphocytes # (A) 2.5 k/uL (1.0-4.8); Lymphocytes % (A) 37 %; MCH 32.7 pg (25.0-35.0); MCHC 33.6 g/dL (31.0-37.0); MCV 97.4 fL (80.0-100.0); Mean Platelet Volume 8.1; Monocytes # (A) 0.4 k/uL (0-1.0); Monocytes % (A) 5 %; Neutrophils # (A) 3.7 k/uL (1.3-7.7); Neutrophils % (A) 54 %; Platelet Count 254 k/uL (150-450); RBC 4.46 m/uL (3.80-5.40); RDW 12.4 % (11.5-15.5); WBC 6.8 k/uL (3.8-10.6)
--- NOTE | 2023-05-27 23:47 | XR ---
EXAM: XR Chest, 2 Views CLINICAL HISTORY: ITS.REASON XR Reason: presyncope, sob, chest pain TECHNIQUE: Frontal and lateral views of the chest. COMPARISON: No relevant prior studies available. FINDINGS: Lungs: Unremarkable. No consolidation. Pleural space: Unremarkable. No pneumothorax. Heart: Unremarkable. No cardiomegaly. Mediastinum: Unremarkable. Bones/joints: Unremarkable. IMPRESSION: Normal chest x-rays.
[2023-05-27 23:51] LABS: Amphetamine Screen,Urine Not Detected (NotDetected); Barbiturate Screen,Urine Not Detected (NotDetected); Benzodiazepines Screen,Urine Not Detected (NotDetected); Cocaine Screen,Urine Not Detected (NotDetected); Methadone Screen, Urine Not Detected (NotDetected); Opiate Screen,Urine Not Detected (NotDetected); Oxycodone Screen, Urine Not Detected (NotDetected); Phencyclidine Screen,Urine Not Detected (NotDetected); Tricyclic Antidepressant,Urine Not Detected (NotDetected); Urn Cannabinoid Scrn Detected (NotDetected)
[2023-05-28 00:20] LABS: ALT 13 U/L (4-34); AST 22 U/L (14-36); African American GFR (CKD) >90 (>60 ml/min/1.73 sqM); Alkaline Phosphatase 54 U/L (38-126); Anion Gap 11 mmol/L; Blood Urea Nitrogen 12 mg/dL (7-17); Calcium 9.2 mg/dL (8.4-10.2); Carbon Dioxide 18 mmol/L (22-30); Chloride 110 mmol/L (98-107); Glucose 70 mg/dL (74-99); Non-African American GFR(CKD) >90 (>60 ml/min/1.73 sqM); Potassium 4.1 mmol/L (3.5-5.1); Sodium 139 mmol/L (137-145); Total Bilirubin 1.1 mg/dL (0.2-1.3); Total Protein 6.8 g/dL (6.3-8.2)
[2023-05-28 00:59] VITALS: BP 127/74; PULSE 75; RESP 16; TEMP 98.6
== END 2023-05-28 00:59 | disposition home or self-care (01) ==
LOC: EC 21:04
DX: R42 Dizziness and giddiness (principal); E16.2 Hypoglycemia, unspecified; J45.909 Unspecified asthma, uncomplicated; F17.290 Nicotine dependence, other tobacco product, uncomplicated; F12.90 Cannabis use, unspecified, uncomplicated; Z86.59 Personal history of other mental and behavioral disorders; Z88.0 Allergy status to penicillin; Z79.899 Other long term (current) drug therapy; Z20.822 Contact with and (suspected) exposure to COVID-19
CPT/HCPCS: 36415; 71046; 80053; 80306; 81001; 81025; 83605; 84443; 84484; 85025; 87635; 93005; 96360; 96361; 99284

== ENCOUNTER 2023-07-15 14:17 | Emergency (ER) | payer BC, OTHER ==
--- NOTE | 2023-07-15 14:46 | ED ---
Fall HPI - General Chief Complaint: Fall Stated Complaint: Fall, R Arm Injury, a few stairs Time Seen by Provider: 07/15/23 14:25 Source: patient, RN notes reviewed Mode of arrival: ambulatory Limitations: no limitations - History of Present Illness Initial Comments: This is a 23-year-old female who presents to the emergency department for a right arm injury after fall. Patient states that 2 days ago she tripped and fell down about 3 stairs. When she fell, she landed on her right arm. She has since had pain starting in the right handed going up the arm. She has been wrapping it with an Steven bandage. States that she is having difficulty moving her fingers due to the pain. Denies hitting her head or sustaining any loss of consciousness. Also denies sustaining any other injuries. Denies any fevers, chills, sore throat, cough, dyspnea, chest pain, palpitations, abdominal pain, nausea, vomiting, diarrhea, back pain, or headaches. MD Complaint: fall - Related Data Home Medications Medication Instructions Recorded Confirmed Albuterol Sulfate [Proair Hfa] 2 puff INHALATION RT-Q6H PRN 08/02/21 08/02/21 Pantoprazole Sodium [Protonix] 20 mg PO DAILY 08/02/21 08/02/21 Previous Rx's Medication Instructions Recorded Citalopram Hydrobromide [CeleXA] 20 mg PO DAILY 30 Days tab 08/04/21 Ondansetron [Zofran] 4 mg PO Q8HR PRN 3 Days tab 08/04/21 Prazosin [Minipress] 1 mg PO HS 30 Days cap 08/04/21 Dicyclomine [Bentyl] 20 mg PO QID #20 tablet 11/18/21 Ondansetron [Zofran ODT] 4 mg PO Q8HR PRN #10 tab 11/18/21 Ibuprofen [Motrin] 600 mg PO Q8HR PRN #15 tab 03/06/23 Allergies Allergy/AdvReac Type Severity Reaction Status Date / Time Penicillins Allergy Anaphylaxis Verified 07/15/23 14:24 Review of Systems ROS Statement: Those systems with pertinent positive or pertinent negative responses have been documented in the HPI. ROS Other: All systems not noted in ROS Statement are negative. Past Medical History Past Medical History: Asthma History of Any Multi-Drug Resistant Organisms: None Reported Past Surgical History: No Surgical Hx Reported Past Psychological History: Anxiety, Depression Smoking Status: Current some day smoker, Vaper Past Alcohol Use History: Occasional Past Drug Use History: Marijuana General Exam Limitations: no limitations General appearance: alert, in no apparent distress Head exam: Present: atraumatic, normocephalic, normal inspection Respiratory exam: Present: normal lung sounds bilaterally. Absent: respiratory distress, wheezes, rales, rhonchi, stridor Cardiovascular Exam: Present: regular rate, normal rhythm, normal heart sounds. Absent: systolic murmur, diastolic murmur, rubs, gallop, clicks Extremities exam: Present: other (Tenderness to palpation of the dorsal aspect of the right handed inferior to the first and second digits. Limited range of motion of all 5 fingers secondary to pain. No overlying deformities. 2+ radial pulses. Capillary refill <1 second.) Neurological exam: Present: alert, oriented X3, CN II-XII intact Psychiatric exam: Present: normal affect, normal mood Skin exam: Present: warm, dry, intact, normal color. Absent: rash Course Vital Signs 07/15/23 07/15/23 14:22 15:33 Temperature 98.3 F 98.1 F Pulse Rate 68 76 Respiratory 20 18 Rate Blood Pressure 136/87 136/76 O2 Sat by Pulse 99 98 Oximetry Medical Decision Making - Medical Decision Making This is a 23-year-old female who presents to the emergency department for right arm pain after a fall. Was pt. sent in by a medical professional or institution? @ -No Did you speak to anyone other than the patient for history? @ -No Did you review nursing and triage notes? @ -Yes, and I agree, it is accurate with regards to the patient's symptoms. Were old charts reviewed? @ -No Differential Diagnosis? @ -Differential Arm Pain/Injury: Fracture, dislocation, contusion, sprain, this is not meant to be an all- inclusive list. EKG interpreted by me (3pts min.)? @ -Not obtained X-rays interpreted by me (1pt min.)? @ -X-ray of the right hand, forearm, and humerus obtained. My interpretation identifies no acute fractures. CT interpreted by me (1pt min.)? @ -Not obtained U/S interpreted by me (1pt. min.)? @ -Not obtained What testing was considered but not performed? (CT, X-rays, U/S, labs)? Why? @ -None What meds were considered but not given? Why? @ -None Did you discuss the management of the patient with other professionals? @ -No Did you reconcile home meds? @ -No Was smoking cessation discussed for >3mins.? @ -No Was critical care preformed (if so, how long)? @ -No Were there social determinants of health that impacted care today? How? (Homelessness, low income, unemployed, alcoholism, drug addiction, transportation, low edu. Level, literacy, decrease access to med. care, assisted, rehab)? @ -No Was there de-escalation of care discussed even if they declined? (Discuss DNR or withdrawal of care, Hospice)? @ -No What co-morbidities impacted this encounter? (DM, HTN, Smoking, COPD, CAD, Cancer, CVA, Hep., AIDS, mental health diagnosis, sleep apnea, morbid obesity)? @ -None Was patient admitted / discharged? @ -Discharged. X-rays of the right hand, forearm, and humerus obtained revealing no acute process. Advised that the pain is likely related to a sprain and contusion. Her arm was wrapped with an Steven bandage for support and management. Advised alternating with ibuprofen and Tylenol as needed for pain relief. Undiagnosed new problem with uncertain prognosis? @ -None Drug Therapy requiring intensive monitoring for toxicity (Heparin, Nitro, Insulin, Cardizem)? @ -None Were any procedures done? @ -None Diagnosis/symptom? @ -Right arm pain, fall Acute, or Chronic, or Acute on Chronic? @ -Acute Uncomplicated (without systemic symptoms) or Complicated (systemic symptoms)? @ -Uncomplicated Side effects of treatment? @ -None Exacerbation, Progression, or Severe Exacerbation] @ -Not applicable Poses a threat to life or bodily function? @ -No Return precautions reviewed in depth, the patient is instructed to return to the emergency department with any new, worsening, or concerning symptoms. Patient verbalized understanding. This case was discussed in detail with the attending ED physician, Dr. Banuelos. Presentation, findings, and treatment plan discussed in detail as well. - Radiology Data Radiology results: report reviewed, image reviewed Disposition Clinical Impression: Fall, Injury of right lower arm Disposition: HOME SELF-CARE Instructions (If sedation given, give patient instructions): Sprain (ED) Additional Instructions: Return to the emergency department with any new, worsening, or concerning symptoms. Alternate with ibuprofen and Tylenol as needed for pain relief. You can continue to use an Steven bandage as needed. Follow up with your primary care provider in 1-2 days. Is patient prescribed a controlled substance at d/c from ED?: No Referrals: Cole Harmon MD [Primary Care Provider] - 1-2 days
--- NOTE | 2023-07-15 14:58 | XR ---
EXAMINATION TYPE: XR forearm RT DATE OF EXAM: 07/15/2023 2:50 PM INDICATION: Patient age:Female; 23 years old; Reason for study: Pain after fall down stairs; [facility]. COMPARISON: None TECHNIQUE: The right forearm was examined in AP and lateral projections. FINDINGS: No acute osseous pathology, soft tissue swelling or joint dislocations are seen. IMPRESSION: No evidence of acute fracture.
--- NOTE | 2023-07-15 14:58 | XR ---
EXAMINATION TYPE: XR humerus RT DATE OF EXAM: 07/15/2023 2:48 PM INDICATION: Patient age:Female; 23 years old; Reason for study: Pain after fall down stairs; [facility]. COMPARISON: None TECHNIQUE: The right humerus was examined in frontal and lateral projections. FINDINGS: No evidence of acute osseous pathology, joint dislocation, or soft tissue swelling. The rem aining portions of the visualized chest are unremarkable. IMPRESSION: No acute osseous pathology.
--- NOTE | 2023-07-15 14:59 | XR ---
EXAMINATION TYPE: XR hand complete RT DATE OF EXAM: 07/15/2023 2:52 PM INDICATION: Patient age:Female; 23 years old; Reason for study: Pain after fall down stairs; [facility]. COMPARISON: None TECHNIQUE: Frontal, lateral and oblique views of the right hand were obtained. FINDINGS: Normal alignment of the visualized joints. No acute osseous pathology is identified. No e vidence of soft tissue swelling. IMPRESSION: No acute osseous pathology.
[2023-07-15] MEDS ORDERED: IBUPROFEN 600 MG STARTER PACK 4 TAB BTL PO STA (15:27)
[2023-07-15] MEDS ORDERED: ACET/COD 300 MG/30 MG STARTER PACK 6 TAB BTL PO STA (15:27)
[2023-07-15 15:34] VITALS: BP 136/76; PULSE 76; RESP 18; TEMP 98.1
== END 2023-07-15 15:00 | disposition home or self-care (01) ==
LOC: EC 14:17
DX: S59.911A Unspecified injury of right forearm, initial encounter (principal); J45.909 Unspecified asthma, uncomplicated; F17.290 Nicotine dependence, other tobacco product, uncomplicated; F12.90 Cannabis use, unspecified, uncomplicated; Z79.899 Other long term (current) drug therapy; Z88.0 Allergy status to penicillin; W10.9XXA Fall (on) (from) unspecified stairs and steps, initial encounter
CPT/HCPCS: 99284

== ENCOUNTER 2023-07-21 03:33 | Emergency (ER) | payer BC, OTHER ==
[2023-07-21] MEDS ORDERED: SODIUM CHLORIDE 0.9% 1,000 ML IV STA (03:51)
[2023-07-21 04:28] LABS: Basophils % (A) 1 %; Eosinophils # (A) 0.1 k/uL (0-0.7); Eosinophils % (A) 1 %; HCT 44.2 % (34.0-46.0); HGB 14.2 gm/dL (11.4-16.0); Lymphocytes # (A) 3.9 k/uL (1.0-4.8); Lymphocytes % (A) 48 %; MCH 31.7 pg (25.0-35.0); MCHC 32.2 g/dL (31.0-37.0); MCV 98.7 fL (80.0-100.0); Mean Platelet Volume 7.1; Monocytes # (A) 0.3 k/uL (0-1.0); Monocytes % (A) 4 %; Neutrophils # (A) 3.7 k/uL (1.3-7.7); Neutrophils % (A) 45 %; Platelet Count 330 k/uL (150-450); RBC 4.48 m/uL (3.80-5.40); RDW 11.9 % (11.5-15.5); WBC 8.2 k/uL (3.8-10.6)
[2023-07-21 04:32] LABS: ALT 14 U/L (4-34); African American GFR (CKD) >90 (>60 ml/min/1.73 sqM); Anion Gap 15 mmol/L; Blood Urea Nitrogen 11 mg/dL (7-17); Carbon Dioxide 16 mmol/L (22-30); Chloride 104 mmol/L (98-107); Glucose 98 mg/dL (74-99); Non-African American GFR(CKD) >90 (>60 ml/min/1.73 sqM); Sodium 135 mmol/L (137-145)
[2023-07-21 04:40] LABS: AST 37 U/L (14-36); Albumin 4.6 g/dL (3.5-5.0); Alcohol 168 mg/dL; Alkaline Phosphatase 78 U/L (38-126); HCG,Qualitative Serum Not Detected; Potassium 4.2 mmol/L (3.5-5.1); Total Bilirubin 1.4 mg/dL (0.2-1.3); Total Protein 8.1 g/dL (6.3-8.2)
[2023-07-21] MEDS ORDERED: SODIUM CHLORIDE 0.9% 1,000 ML IV ONE (04:54)
[2023-07-21] MEDS ORDERED: ONDANSETRON 4 MG/2 ML VIAL IVP STA (05:11)
--- NOTE | 2023-07-21 05:13 | ED ---
Alcohol HPI - General Chief Complaint: Alcohol Stated Complaint: ETOH Time Seen by Provider: 07/21/23 03:40 Source: EMS Mode of arrival: EMS Limitations: no limitations - History of Present Illness Initial Comments: 23-year-old female is brought in for alcohol intoxication. Her boyfriend is at bedside and provides the history. States that she was out with her friends camila and was drinking heavily. States that she drink several different drinks. She began feeling nauseated. She was driving with her friend in the car when they had to warehouse order puller because she was vomiting. The patient then began walking down the road. EMS were called to the roadside to accept the patient up. She denies any other drug use. Denies suicidal ideations. Patient was not drinking in an attempt to harm herself. Denies concern for . No abdominal pain. Denies any injuries while drinking. No other alleviating, precipitating or modifying factors - Related Data Home Medications Medication Instructions Recorded Confirmed Albuterol Sulfate [Proair Hfa] 2 puff INHALATION RT-Q6H PRN 08/02/21 08/02/21 Pantoprazole Sodium [Protonix] 20 mg PO DAILY 08/02/21 08/02/21 Previous Rx's Medication Instructions Recorded Citalopram Hydrobromide [CeleXA] 20 mg PO DAILY 30 Days tab 08/04/21 Ondansetron [Zofran] 4 mg PO Q8HR PRN 3 Days tab 08/04/21 Prazosin [Minipress] 1 mg PO HS 30 Days cap 08/04/21 Dicyclomine [Bentyl] 20 mg PO QID #20 tablet 11/18/21 Ondansetron [Zofran ODT] 4 mg PO Q8HR PRN #10 tab 11/18/21 Ibuprofen [Motrin] 600 mg PO Q8HR PRN #15 tab 03/06/23 Allergies Allergy/AdvReac Type Severity Reaction Status Date / Time Penicillins Allergy Anaphylaxis Verified 07/15/23 14:24 Review of Systems ROS Statement: Those systems with pertinent positive or pertinent negative responses have been documented in the HPI. ROS Other: All systems not noted in ROS Statement are negative. Past Medical History Past Medical History: Asthma History of Any Multi-Drug Resistant Organisms: None Reported Past Surgical History: No Surgical Hx Reported Past Psychological History: Anxiety, Depression Smoking Status: Current some day smoker, Vaper Past Alcohol Use History: Occasional Past Drug Use History: Marijuana General Exam Limitations: altered mental status General appearance: appears intoxicated, lethargic Head exam: Present: atraumatic, normocephalic, normal inspection Eye exam: Present: normal appearance, PERRL, EOMI. Absent: scleral icterus, conjunctival injection, periorbital swelling ENT exam: Present: normal exam, mucous membranes moist Neck exam: Present: normal inspection. Absent: tenderness, meningismus, lymphadenopathy Respiratory exam: Present: normal lung sounds bilaterally. Absent: respiratory distress, wheezes, rales, rhonchi, stridor Cardiovascular Exam: Present: regular rate, normal rhythm, normal heart sounds. Absent: systolic murmur, diastolic murmur, rubs, gallop, clicks GI/Abdominal exam: Present: soft, normal bowel sounds. Absent: distended, tenderness, guarding, rebound, rigid Neurological exam: Present: altered, other (Patient is acutely intoxicated) Skin exam: Present: warm, dry, intact, normal color. Absent: rash Course Vital Signs 07/21/23 07/21/23 07/21/23 03:36 06:00 07:09 Temperature 97.8 F Pulse Rate 72 62 72 Respiratory 22 20 Rate Blood Pressure 117/82 128/65 O2 Sat by Pulse 99 97 Oximetry Medical Decision Making - Medical Decision Making Was pt. sent in by a medical professional or institution ([facility], [employer], urgent care, hospital, or penitentiary...) When possible be specific @ -No Did you speak to anyone other than the patient for history (EMS, parent, family, police, friend...)? What history was obtained from this source @ -I spoke with the patient's boyfriend about the history. He was on the phone with the patient the whole time that she was on the roadside Did you review nursing and triage notes (agree or disagree)? Why? @ -I reviewed and agree with nursing and triage notes Were old charts reviewed (outside hosp., previous admission, EMS record, old EKG, old radiological studies, urgent care reports/EKG's, penitentiary records)? Report findings @ -No old charts were reviewed Differential Diagnosis (chest pain, altered mental status, abdominal pain women, abdominal pain men, vaginal bleeding, weakness, fever, dyspnea, syncope, headache, dizziness, GI bleed, back pain, seizure, CVA, palpatations, mental health, musculoskeletal)? @ -Alcohol intoxication, substance abuse, depression, head injury EKG interpreted by me (3pts min.). @ -Not done X-rays interpreted by me (1pt min.). @ -None done CT interpreted by me (1pt min.). @ -None done U/S interpreted by me (1pt. min.). @ -None done What testing was considered but not performed or refused? (CT, X-rays, U/S, labs)? Why? @ -None What meds were considered but not given or refused? Why? @ -None Did you discuss the management of the patient with other professionals (professionals i.e. , PA, [employer], lab, RT, psych nurse, social work faculty member, still pump operator, teacher, customer service security officer, egg caser)? Give summary @ -No Was smoking cessation discussed for >3mins.? @ -No Was critical care preformed (if so, how long)? @ -No Were there social determinants of health that impacted care today? How? (Homelessness, low income, unemployed, alcoholism, drug addiction, transportation, low edu. Level, literacy, decrease access to med. care, snf, rehab)? @ -No Was there de-escalation of care discussed even if they declined (Discuss DNR or withdrawal of care, Hospice)? DNR status @ -No What co-morbidities impacted this encounter? (DM, HTN, Smoking, COPD, CAD, Cancer, CVA, ARF, Chemo, Hep., AIDS, mental health diagnosis, sleep apnea, morbid obesity)? @ -None Was patient admitted / discharged? Hospital course, mention meds given and route, prescriptions, significant lab abnormalities, going to OR and other pertinent info. @ -Arrival patient is placed in room 15. Thorough history and physical exam was performed. Patient does not demonstrate any signs of trauma. IV is established and she is given IV fluids and nausea medications. She is watched for several hours. She does become more responsive and states that she feels better. At this time the patient will be discharged home. Instructed to be reevaluated by her primary care and return for any new or worsening symptoms. Patient agreeable with plan and she was discharged in stable condition Undiagnosed new problem with uncertain prognosis? @ -No Drug Therapy requiring intensive monitoring for toxicity (Heparin, Nitro, Insu jose luis, Cardizem)? @ -No Were any procedures done? @ -No Diagnosis/symptom? @ -Acute nausea and vomiting, acute alcohol intoxication Acute, or Chronic, or Acute on Chronic? @ -Acute Uncomplicated (without systemic symptoms) or Complicated (systemic symptoms)? @ -Complicated Side effects of treatment? @ -No Exacerbation, Progression, or Severe Exacerbation? @ -No Poses a threat to life or bodily function? How? (Chest pain, [place], [place], pneumonia, PE, COPD, DKA, ARF, appy, cholecystitis, CVA, Diverticulitis, Homicidal, Suicidal, threat to staff... and all critical care pts) @ -No - Lab Data Result diagrams: 07/21/23 03:59 07/21/23 03:59 Lab Results 07/21/23 07/21/23 Range/Units 03:59 03:59 WBC 8.2 (3.8-10.6) k/uL RBC 4.48 (3.80-5.40) m/uL Hgb 14.2 (11.4-16.0) gm/dL Hct 44.2 (34.0-46.0) % MCV 98.7 (80.0-100.0) fL MCH 31.7 (25.0-35.0) pg MCHC 32.2 (31.0-37.0) g/dL RDW 11.9 (11.5-15.5) % Plt Count 330 (150-450) k/uL MPV 7.1 Neutrophils % 45 % Lymphocytes % 48 % Monocytes % 4 % Eosinophils % 1 % Basophils % 1 % Neutrophils # 3.7 (1.3-7.7) k/uL Lymphocytes # 3.9 (1.0-4.8) k/uL Monocytes # 0.3 (0-1.0) k/uL Eosinophils # 0.1 (0-0.7) k/uL Basophils # 0.0 (0-0.2) k/uL Sodium 135 L (137-145) mmol/L Potassium 4.2 (3.5-5.1) mmol/L Chloride 104 (98-107) mmol/L Carbon Dioxide 16 L (22-30) mmol/L Anion Gap 15 mmol/L BUN 11 (7-17) mg/dL Creatinine 0.72 (0.52-1.04) mg/dL Est GFR (CKD-EPI)AfAm >90 (>60 ml/min/1.73 sqM) Est GFR (CKD-EPI)NonAf >90 (>60 ml/min/1.73 sqM) Glucose 98 (74-99) mg/dL Calcium 9.0 (8.4-10.2) mg/dL Total Bilirubin 1.4 H (0.2-1.3) mg/dL AST 37 H (14-36) U/L ALT 14 (4-34) U/L Alkaline Phosphatase 78 (38-126) U/L Total Protein 8.1 (6.3-8.2) g/dL Albumin 4.6 (3.5-5.0) g/dL HCG, Qual Not Detected Serum Alcohol 168 mg/dL Disposition Clinical Impression: Alcohol intoxication, Nausea and vomiting Disposition: HOME SELF-CARE Condition: Stable Instructions (If sedation given, give patient instructions): Alcohol Intoxication (ED) Is patient prescribed a controlled substance at d/c from ED?: No Referrals: Cole Harmon MD [Primary Care Provider] - 1-2 days Time of Disposition: 05:13
[2023-07-21 06:37] VITALS: TEMP 97.8
[2023-07-21] MEDS ORDERED: ONDANSETRON 4 MG ODT STARTER PACK 2 TAB BTL PO STA (06:52)
[2023-07-21 07:10] VITALS: BP 128/65; PULSE 72; RESP 20
--- NOTE | 2023-07-21 08:42 | XR ---
EXAMINATION TYPE: XR chest 1V portable DATE OF EXAM: 07/21/2023 COMPARISON: 05/27/2023 INDICATION: Vomiting TECHNIQUE: Single frontal view of the chest is obtained. FINDINGS: The heart size is normal. The pulmonary vasculature is normal. The lungs are clear. IMPRESSION: 1. No acute pulmonary process.
== END 2023-07-21 07:10 | disposition home or self-care (01) ==
LOC: EC 03:33
DX: F10.129 Alcohol abuse with intoxication, unspecified (principal); J45.909 Unspecified asthma, uncomplicated; F17.290 Nicotine dependence, other tobacco product, uncomplicated; F12.90 Cannabis use, unspecified, uncomplicated; Z79.899 Other long term (current) drug therapy; Z88.0 Allergy status to penicillin; Y90.6 Blood alcohol level of 120-199 mg/100 ml
CPT/HCPCS: 99284; 96374; 96361 ×3; 36415; 80053; 85025; 84703; 80320; 71045; J2405; S0119

== ENCOUNTER 2024-10-06 16:22 | Emergency (ER) | payer OTHER ==
--- NOTE | 2024-10-06 17:29 | ED ---
Abdominal Pain HPI - General Source: patient, RN notes reviewed Mode of arrival: ambulatory Limitations: no limitations <Marycruz Sharma - Last Filed: 10/06/24 19:16> <Natalee Mejia - Last Filed: 10/06/24 20:56> - General Chief Complaint: Abdominal Pain Stated Complaint: Testing requested by PCP Time Seen by Provider: 10/06/24 16:33 - History of Present Illness Initial Comments: 24-year-old female presenting with right flank pain x 2 days. Also states she started her menstrual period yesterday. Sent by her PCP Dr. Harmon today for abdominal pain with positive test. Describes pain as a sharp pain in the right flank that feels like a "stretched balloon". She takes oral contraceptive pills. Denies urinary symptoms, lightheadedness, syncope, chest pain, shortness of breath, vaginal discharge, urinary symptoms. Denies any other medical conditions. Denies blood thinners. (Marycruz Sharma) - Related Data Home Medications Medication Instructions Recorded Confirmed Albuterol Sulfate [Proair Hfa] 2 puff INHALATION RT-Q6H PRN 08/02/21 08/02/21 Pantoprazole Sodium [Protonix] 20 mg PO DAILY 08/02/21 08/02/21 Previous Rx's Medication Instructions Recorded Citalopram Hydrobromide [CeleXA] 20 mg PO DAILY 30 Days tab 08/04/21 Ondansetron [Zofran] 4 mg PO Q8HR PRN 3 Days tab 08/04/21 Prazosin [Minipress] 1 mg PO HS 30 Days cap 08/04/21 Dicyclomine [Bentyl] 20 mg PO QID #20 tablet 11/18/21 Ondansetron [Zofran ODT] 4 mg PO Q8HR PRN #10 tab 11/18/21 Ibuprofen [Motrin] 600 mg PO Q8HR PRN #15 tab 03/06/23 Ketorolac [Toradol] 10 mg PO Q6HR PRN #15 tab 10/06/24 Levofloxacin [Levaquin] 750 mg PO DAILY 5 Days #5 tab 10/06/24 Ondansetron Odt [Zofran Odt] 4 mg PO Q8HR PRN #20 tab 10/06/24 Allergies Allergy/AdvReac Type Severity Reaction Status Date / Time Penicillins Allergy Anaphylaxis Verified 10/06/24 16:27 Review of Systems ROS Other: All systems not noted in ROS Statement are negative. <Elicia Sharmana - Last Filed: 10/06/24 19:16> ROS Other: All systems not noted in ROS Statement are negative. <Natalee Mejia - Last Filed: 10/06/24 20:56> ROS Statement: Those systems with pertinent positive or pertinent negative responses have been documented in the HPI. Past Medical History Past Medical History: Asthma History of Any Multi-Drug Resistant Organisms: None Reported Past Surgical History: No Surgical Hx Reported Past Psychological History: Anxiety, Depression Smoking Status: Current some day smoker, Vaper Past Alcohol Use History: Occasional Past Drug Use History: Marijuana <Elicia Sharmana - Last Filed: 10/06/24 19:16> General Exam Limitations: no limitations General appearance: alert, in no apparent distress Head exam: Present: atraumatic, normocephalic, normal inspection GI/Abdominal exam: Present: soft, normal bowel sounds. Absent: distended, tenderness, guarding, rebound, rigid Back exam: Absent: CVA tenderness (R), CVA tenderness (L) Neurological exam: Present: alert, oriented X3 Psychiatric exam: Present: normal affect, normal mood Skin exam: Present: warm, dry, intact, normal color. Absent: rash <Elicia Sharmana - Last Filed: 10/06/24 19:16> Course Vital Signs 10/06/24 10/06/24 10/06/24 16:24 18:38 20:19 Temperature 98.5 F 98.2 F 98.2 F Pulse Rate 89 88 86 Respiratory 18 12 14 Rate Blood Pressure 135/81 128/86 120/80 O2 Sat by Pulse 100 99 99 Oximetry Medical Decision Making - Lab Data Result diagrams: 10/06/24 17:32 10/06/24 17:32 <Marycruz Sharma - Last Filed: 10/06/24 19:16> - Lab Data Result diagrams: 10/06/24 17:32 10/06/24 17:32 - Radiology Data Radiology results: report reviewed, image reviewed <Natalee Mejia - Last Filed: 10/06/24 20:56> - Medical Decision Making Was pt. sent in by a medical professional or institution (, PA, TUMBLING BARREL PAINTER, urgent care, hospital, or snf...) When possible be specific @ -Sent by Dr. Harmon's office for abdominal pain with positive test Did you speak to anyone other than the patient for history (EMS, parent, family, police, friend...)? What history was obtained from this source @ -No Did you review nursing and triage notes (agree or disagree)? Why? @ -I reviewed and agree with nursing and triage notes Were old charts reviewed (outside hosp., previous admission, EMS record, old EKG, old radiological studies, urgent care reports/EKG's, snf records)? Report findings @ -No old charts were reviewed Differential Diagnosis (chest pain, altered mental status, abdominal pain women, abdominal pain men, vaginal bleeding, weakness, fever, dyspnea, syncope, heada colleen, dizziness, GI bleed, back pain, seizure, CVA, palpatations, mental health, musculoskeletal)? @ -Differential Abdominal Pain Women: Appendicitis, Cholecystitis, diverticulosis, ischemic bowel, pancreatitis, hepatitis, UTI, gastroenteritis, AAA, incarcerated hernia, bowel obstruction, constipation, inflammatory bowel, hepatitis, peptic ulcer disease, splenic infarction, perforated viscus, vulvitis, ovarian torsion, PID, kidney stone, placenta abruption, this is not meant to be an all-inclusive list EKG interpreted by me (3pts min.). @ -None X-rays interpreted by me (1pt min.). @ -None done CT interpreted by me (1pt min.). @ -CT abdomen pelvis pending U/S interpreted by me (1pt. min.). @ -Ultrasound pelvis reveals no acute process What testing was considered but not performed or refused? (CT, X-rays, U/S, labs)? Why? @ -None What meds were considered but not given or refused? Why? @ -None Did you discuss the management of the patient with other professionals (professionals i.e. GARY Neumann, TUMBLING BARREL PAINTER, lab, RT, psych nurse, social media job titles, cook jelly, teacher, code enforcement officer, geriatric case manager)? Give summary @ -No Was smoking cessation discussed for >3mins.? @ -No Was critical care preformed (if so, how long)? @ -No Were there social determinants of health that impacted care today? How? (Homelessness, low income, unemployed, alcoholism, drug addiction, transportation, low edu. Level, literacy, decrease access to med. care, intermediate, rehab)? @ -No Was there de-escalation of care discussed even if they declined (Discuss DNR or withdrawal of care, Hospice)? DNR status @ -No What co-morbidities impacted this encounter? (DM, HTN, Smoking, COPD, CAD, Cancer, CVA, ARF, Chemo, Hep., AIDS, mental health diagnosis, sleep apnea, morbid obesity)? @ -None Was patient admitted / discharged? Hospital course, mention meds given and route, prescriptions, significant lab abnormalities, going to OR and other pertinent info. @ -This is a 24-year-old female presenting with right flank pain x 2 days. Vital signs within acceptable limits. Abdomen is soft and nontender. Blood hCG negative. Lab work including CBC, CMP, lactic acid, lipase unremarkable. Urinalysis remarkable for large amount of blood and few white blood cells. Ultrasound pelvis reveals no acute process. CT abdomen pelvis ordered and signed out to Natalee Mejia PA-C pending signed out at time of shift change. (Marycruz Sharma) Case signed out to me by Marycruz Sharma PA-C, at shift completion pending CT scan results. CT scan of the abdomen and pelvis demonstrates asymmetric right perinephric fat stranding/inflammation without obstructing renal or ureteral calculus identified. This could be a recently passed stone or infectious etiology. Urinalysis does contain elevated white blood cells and bacteria. Urine sent for culture. Findings reviewed with the patient. She was given an additional dose of Toradol and Zofran prior to discharge to help with pain and some nausea. Given that she has an anaphylactic reaction to penicillins, will put her on Levaquin to treat possible pyelonephritis. Initial dose administered in the emergency department. Toradol and Zofran prescribed for any additional nausea and pain. Advised follow-up with her PCP for reevaluation. Patient discharged home in stable condition. Case discussed with ED attending Dr. Banuelos. Return precautions reviewed in depth, the patient is instructed to return to the emergency department with any new, worsening, or concerning symptoms. Patient verbalized understanding. (Natalee Mejia) - Lab Data Lab Results 10/06/24 10/06/24 10/06/24 Range/Units 17:32 17:32 17:32 WBC 7.5 (3.8-10.6) k/uL RBC 4.35 (3.80-5.40) m/uL Hgb 13.6 (11.4-16.0) gm/dL Hct 42.0 (34.0-46.0) % MCV 96.6 (80.0-100.0) fL MCH 31.4 (25.0-35.0) pg MCHC 32.5 (31.0-37.0) g/dL RDW 12.3 (11.5-15.5) % Plt Count 288 (150-450) k/uL MPV 6.8 Neutrophils % 69 % Lymphocytes % 24 % Monocytes % 5 % Eosinophils % 1 % Basophils % 0 % Neutrophils # 5.2 (1.3-7.7) k/uL Lymphocytes # 1.8 (1.0-4.8) k/uL Monocytes # 0.3 (0-1.0) k/uL Eosinophils # 0.1 (0-0.7) k/uL Basophils # 0.0 (0-0.2) k/uL Sodium 140 (137-145) mmol/L Potassium 4.4 (3.5-5.1) mmol/L Chloride 106 (98-107) mmol/L Carbon Dioxide 28 (22-30) mmol/L Anion Gap 6 mmol/L BUN 8 (7-17) mg/dL Creatinine 0.73 (0.52-1.04) mg/dL Est GFR (CKD-EPI)AfAm >90 (>60 ml/min/1.73 sqM) Est GFR (CKD-EPI)NonAf >90 (>60 ml/min/1.73 sqM) Glucose 93 (74-99) mg/dL Plasma Lactic Acid Ignacio (0.7-2.0) mmol/L Calcium 9.4 (8.4-10.2) mg/dL Total Bilirubin 1.4 H (0.2-1.3) mg/dL AST 19 (14-36) U/L ALT 8 (4-34) U/L Alkaline Phosphatase 65 (38-126) U/L Total Protein 7.1 (6.3-8.2) g/dL Albumin 4.2 (3.5-5.0) g/dL Lipase 27 (23-300) U/L HCG, Quant <2.4 mIU/mL Urine Color Colorless Urine Appearance Clear (Clear) Urine pH 6.0 (5.0-8.0) Ur Specific [place] 1.014 (1.001-1.035) Urine Protein Negative (Negative) Urine Glucose (UA) Negative (Negative) Urine Ketones Negative (Negative) Urine Blood Moderate H (Negative) Urine Nitrite Negative (Negative) Urine Bilirubin Negative (Negative) Urine Urobilinogen <2.0 (<2.0) mg/dL Ur Leukocyte Esterase Trace H (Negative) Urine RBC 62 H (0-5) /hpf Urine WBC 14 H (0-5) /hpf Ur Squamous Epith Cells <1 (0-4) /hpf Urine Bacteria Occasional H (None) /hpf Hyaline Casts 1 (0-2) /lpf Urine Mucus Few H (None) /hpf 10/06/ Range/Units 17:32 WBC (3.8-10.6) k/uL RBC (3.80-5.40) m/uL Hgb (11.4-16.0) gm/dL Hct (34.0-46.0) % MCV (80.0-100.0) fL MCH (25.0-35.0) pg MCHC (31.0-37.0) g/dL RDW (11.5-15.5) % Plt Count (150-450) k/uL MPV Neutrophils % % Lymphocytes % % Monocytes % % Eosinophils % % Basophils % % Neutrophils # (1.3-7.7) k/uL Lymphocytes # (1.0-4.8) k/uL Monocytes # (0-1.0) k/uL Eosinophils # (0-0.7) k/uL Basophils # (0-0.2) k/uL Sodium (137-145) mmol/L Potassium (3.5-5.1) mmol/L Chloride (98-107) mmol/L Carbon Dioxide (22-30) mmol/L Anion Gap mmol/L BUN (7-17) mg/dL Creatinine (0.52-1.04) mg/dL Est GFR (CKD-EPI)AfAm (>60 ml/min/1.73 sqM) Est GFR (CKD-EPI)NonAf (>60 ml/min/1.73 sqM) Glucose (74-99) mg/dL Plasma Lactic Acid Ignacio 1.1 (0.7-2.0) mmol/L Calcium (8.4-10.2) mg/dL Total Bilirubin (0.2-1.3) mg/dL AST (14-36) U/L ALT (4-34) U/L Alkaline Phosphatase (38-126) U/L Total Protein (6.3-8.2) g/dL Albumin (3.5-5.0) g/dL Lipase (23-300) U/L HCG, Quant mIU/mL Urine Color Urine Appearance (Clear) Urine pH (5.0-8.0) Ur Specific [place] (1.001-1.035) Urine Protein (Negative) Urine Glucose (UA) (Negative) Urine Ketones (Negative) Urine Blood (Negative) Urine Nitrite (Negative) Urine Bilirubin (Negative) Urine Urobilinogen (<2.0) mg/dL Ur Leukocyte Esterase (Negative) Urine RBC (0-5) /hpf Urine WBC (0-5) /hpf Ur Squamous Epith Cells (0-4) /hpf Urine Bacteria (None) /hpf Hyaline Casts (0-2) /lpf Urine Mucus (None) /hpf Disposition <Marycruz Sharma - Last Filed: 10/06/24 19:16> Is patient prescribed a controlled substance at d/c from ED?: No Time of Disposition: 19:56 <Natalee Mejia - Last Filed: 10/06/24 20:56> Clinical Impression: UTI (urinary tract infection), Right flank pain Disposition: HOME SELF-CARE Instructions (If sedation given, give patient instructions): Urinary Tract Infection in Women (ED), Flank Pain (ED) Additional Instructions: Return to the emergency department with any new, worsening, or concerning symptoms. Take the antibiotic as prescribed for 5 days. Take the Toradol with Tylenol as needed for pain relief. If you choose to take the Toradol, do not take any other anti-inflammatories such as ibuprofen, take one or the other. Take the Zofran up to every 8 hours as needed for nausea and vomiting. Follow up with your primary care provider in 1-2 days. Prescriptions: Levofloxacin [Levaquin] 750 mg PO DAILY 5 Days #5 tab Ketorolac [Toradol] 10 mg PO Q6HR PRN #15 tab PRN Reason: Pain Ondansetron Odt [Zofran Odt] 4 mg PO Q8HR PRN #20 tab PRN Reason: Nausea And Vomiting Referrals: Cole Harmon MD [Primary Care Provider] - 1-2 days
[2024-10-06] MEDS: SODIUM CHLORIDE 0.9% 1,000 ML IV STA (17:40)
[2024-10-06] MEDS: ACETAMINOPHEN TAB 325 MG TAB PO STA (17:42)
[2024-10-06 17:46] LABS: Basophils % (A) 0 %; Eosinophils # (A) 0.1 k/uL (0-0.7); Eosinophils % (A) 1 %; HGB 13.6 gm/dL (11.4-16.0); Lymphocytes # (A) 1.8 k/uL (1.0-4.8); Lymphocytes % (A) 24 %; MCH 31.4 pg (25.0-35.0); MCHC 32.5 g/dL (31.0-37.0); MCV 96.6 fL (80.0-100.0); Mean Platelet Volume 6.8; Monocytes # (A) 0.3 k/uL (0-1.0); Monocytes % (A) 5 %; Neutrophils # (A) 5.2 k/uL (1.3-7.7); Neutrophils % (A) 69 %; Platelet Count 288 k/uL (150-450); RBC 4.35 m/uL (3.80-5.40); RDW 12.3 % (11.5-15.5); WBC 7.5 k/uL (3.8-10.6)
[2024-10-06 17:59] LABS: Appearance,Urine Clear (Clear); Bacteria,Urine Occasional /hpf; Bilirubin,Urine Negative (Negative); Blood,Urine Moderate (Negative); Color,Urine Colorless; Glucose,Urine (UA) Negative (Negative); Hyaline Casts,Urine 1 /lpf (0-2); Ketones,Urine Negative (Negative); Leukocyte Esterase,Urine Trace (Negative); Mucus,Urine Few /hpf; Nitrite,Urine Negative (Negative); Protein,Urine Negative (Negative); RBC,Urine 62 /hpf (0-5); Specific Gravity,Urine 1.014 (1.001-1.035); Squamous Epithelial Cell,Urine <1 /hpf (0-4); Urobilinogen,Urine <2.0 mg/dL (<2.0); WBC,Urine 14 /hpf (0-5)
[2024-10-06 18:02] LABS: ALT 8 U/L (4-34); AST 19 U/L (14-36); African American GFR (CKD) >90 (>60 ml/min/1.73 sqM); Albumin 4.2 g/dL (3.5-5.0); Alkaline Phosphatase 65 U/L (38-126); Anion Gap 6 mmol/L; Blood Urea Nitrogen 8 mg/dL (7-17); Calcium 9.4 mg/dL (8.4-10.2); Carbon Dioxide 28 mmol/L (22-30); Chloride 106 mmol/L (98-107); Glucose 93 mg/dL (74-99); Lipase 27 U/L (23-300); Non-African American GFR(CKD) >90 (>60 ml/min/1.73 sqM); Potassium 4.4 mmol/L (3.5-5.1); Sodium 140 mmol/L (137-145); Total Bilirubin 1.4 mg/dL (0.2-1.3); Total Protein 7.1 g/dL (6.3-8.2)
[2024-10-06 18:16] LABS: HCG,Quantitative Serum <2.4 mIU/mL
--- NOTE | 2024-10-06 18:30 | US ---
EXAMINATION TYPE: Transabdominal DATE OF EXAM: 10/06/2024 6:24 PM COMPARISON: NONE CLINICAL INDICATION: Female, 24 years old with history of vaginal bleeding/abd pain in ; Pat ient states positive test at PCP with right flank pain and vaginal bleeding. Patient states she takes oral control. Has bled the past few months like a normal period TECHNIQUE: Transvaginal (TV) and Transabdominal (TA) with grayscale and color Doppler imaging includi ng first trimester . FINDINGS: EXAM MEASUREMENTS: GESTATIONAL AGE / DATING Physician Established: Not yet established Dates by First Scan: No previous this is first scan Dates by Current Scan for: No IUP seen at this time MATERNAL ANATOMY Uterus: 6.4 x 2.4 x 4.0cm. No IUP seen. The endometrium measures 0.6cm. There is a 3mm probable nabot hian cyst seen within the cervix Right Ovary: 3.9 x 2.2 x 2.4cm. follicular changes seen Left Ovary: 4.9 x 2.8 x 4.2cm. follicular changes seen, largest measuring 2.6 x 1.6 x 2.1cm with a po ssible daughter cyst seen within Post CDS / Adnexa: wnl Presence of free fluid: not seen Presence of corpus luteal cyst: no Presence of subchorionic bleed: no IUP: No IUP seen at this time Date of LMP: Started bleeding yesterday 10/05/24 Beta HcG (if available): <2.4 IMPRESSION: 1. No evidence of intrauterine gestational sac, correlate with B-hCG. If positive, this could represe nt early , ectopic or spontaneous . Follow up pelvic ultrasound in 5-7 day s and serial beta hCG studies are recommended. [facility], , 10/06/2024 6:28 PM
[2024-10-06 18:39] VITALS: TEMP 98.2
[2024-10-06] MEDS: KETOROLAC 15 MG/ML 1 ML VIAL IVP STA ×2 (18:55→20:10)
--- NOTE | 2024-10-06 19:35 | CT ---
EXAMINATION TYPE: CT abdomen pelvis wo con DATE OF EXAM: 10/06/2024 7:24 PM COMPARISON: Same day ultrasound study. CLINICAL INDICATION: Female, 24 years old with history of right flank pain, kidney stone suspected; R T SIDE PAIN TECHNIQUE: Axial CT abdomen pelvis wo con;Sagittal and coronal reformats were created on a separate workstation. Oral contrast used: without Oral Contrast CT DLP: 726.1 mGycm, Automated exposure control for dose reduction was used. FINDINGS: LOWER CHEST: Unremarkable ABDOMEN LIVER: Unremarkable GALLBLADDER AND BILE DUCTS: Numerous gallstones throughout the gallbladder lumen. No definite CT evid ence of pericholecystic fluid. PANCREAS: Unremarkable. SPLEEN: Unremarkable. ADRENAL GLANDS: Unremarkable. KIDNEYS AND URETERS: Subtle asymmetric right perinephric fat stranding/inflammation (image 57). No ev idence of nephrolithiasis or urolithiasis. PELVIS BLADDER: No evidence for wall thickening or mass given limitations of exam. REPRODUCTIVE: Unremarkable. Small volume free fluid in the pelvis, likely physiologic related. ABDOMEN & PELVIS STOMACH AND BOWEL: Stomach and duodenum are unremarkable No evidence of bowel obstruction. Appendix n ormal. PERITONEUM/RETROPERITONEUM: No evidence of pneumoperitoneum or free fluid. VASCULATURE: No evidence of aortic aneurysm. MUSCULOSKELETAL: No acute osseous abnormalities LYMPH NODES: No gross evidence for lymphadenopathy. SOFT TISSUE/ABDOMINAL WALL: Unremarkable IMPRESSION: 1. Asymmetric right perinephric fat stranding/inflammation without obstructing renal or ureteral alex culus identified. Findings could reflect sequelae of recently passed stone or infectious etiology/lizzeth litis. Recommend correlation with urinalysis. 2. Cholelithiasis. [facility], , 10/06/2024 7:33 PM
[2024-10-06] MEDS: LEVOFLOXACIN 750 MG TAB PO STA (20:09)
[2024-10-06] MEDS: ONDANSETRON 4 MG/2 ML VIAL IVP STA (20:09)
[2024-10-06] MEDS: ACET/COD 300 MG/30 MG STARTER PACK 6 TAB BTL PO STA (20:10)
[2024-10-06] MEDS: ONDANSETRON 4 MG ODT STARTER PACK 2 TAB BTL PO STA (20:11)
[2024-10-06 20:21] VITALS: BP 120/80; PULSE 86; RESP 14
== END 2024-10-06 20:22 | disposition home or self-care (01) ==
LOC: EC 16:22
DX: N39.0 Urinary tract infection, site not specified (principal); R10.31 Right lower quadrant pain; F17.290 Nicotine dependence, other tobacco product, uncomplicated; Z88.0 Allergy status to penicillin
CPT/HCPCS: 36415; 80053; 83605; 83690; 85025; 81001; 84702; 87086; 76801; 76817; 74176; 99284; 96374; 96375; 96376; 96361; J2405; J1885; S0119

== ENCOUNTER 2025-01-11 18:40 | Emergency (ER) | payer OTHER ==
[2025-01-11 18:47] VITALS: RESP 18
--- NOTE | 2025-01-11 19:51 | ED ---
Female Urogenital HPI - General Source: patient Mode of arrival: ambulatory Limitations: no limitations <Marlen Márquez - Last Filed: 01/11/25 21:01> <Tiffani Roman - Last Filed: 01/11/25 22:09> - General Chief complaint: Vaginal Bleeding Stated complaint: abd pain - History of Present Illness Initial comments: Massiel 3-year-old female who presents to the emergency department today for evaluation of vaginal bleeding. Patient states that in May 2023 she started Depo and as soon as she started she started having frequent heavy vaginal bleeding. Patient states that she was advised she needed to do a full 1 year of Depo for her body to get used to it and potentially have the bleeding stop however despite using it for 1 year she continued to have heavy vaginal bleeding so she decided to stop taking that in January of last year. Patient continued to have nearly daily vaginal bleeding that was similar to being on her period but constantly. Patient started control 3 months ago and reports she is continue to have bleeding patient estimates that she has had about 2 weeks without bleeding in the past year. Patient states that September she saw her primary care had a positive urine test that here to the ER where she had a negative serum and a negative ultrasound. Patient states she has not had any subsequent follow-up. Patient states that due to some medical that she has not been able to see her primary care and has not been able to get a referral to gynecology. (Marlen Márquez) - Related Data Home Medications Medication Instructions Recorded Confirmed Albuterol Sulfate [Proair Hfa] 2 puff INHALATION RT-Q6H PRN 08/02/21 08/02/21 Pantoprazole Sodium [Protonix] 20 mg PO DAILY 08/02/21 08/02/21 Previous Rx's Medication Instructions Recorded Citalopram Hydrobromide [CeleXA] 20 mg PO DAILY 30 Days tab 08/04/21 Ondansetron [Zofran] 4 mg PO Q8HR PRN 3 Days tab 08/04/21 Prazosin [Minipress] 1 mg PO HS 30 Days cap 08/04/21 Dicyclomine [Bentyl] 20 mg PO QID #20 tablet 11/18/21 Ondansetron [Zofran ODT] 4 mg PO Q8HR PRN #10 tab 11/18/21 Ibuprofen [Motrin] 600 mg PO Q8HR PRN #15 tab 03/06/23 Ketorolac [Toradol] 10 mg PO Q6HR PRN #15 tab 10/06/24 Levofloxacin [Levaquin] 750 mg PO DAILY 5 Days #5 tab 10/06/24 Ondansetron Odt [Zofran Odt] 4 mg PO Q8HR PRN #20 tab 10/06/24 Allergies Allergy/AdvReac Type Severity Reaction Status Date / Time Penicillins Allergy Anaphylaxis Verified 01/11/25 18:47 Review of Systems ROS Other: All systems not noted in ROS Statement are negative. <Marlen Márquez - Last Filed: 01/11/25 21:01> ROS Other: All systems not noted in ROS Statement are negative. <Tiffani Roman - Last Filed: 01/11/25 22:09> ROS Statement: Those systems with pertinent positive or pertinent negative responses have been documented in the HPI. Past Medical History Past Medical History: Asthma History of Any Multi-Drug Resistant Organisms: ESBL Date of last positivie culture/infection: 10/06/24 MDRO Source:: urine Past Surgical History: No Surgical Hx Reported Past Psychological History: Anxiety, Depression Smoking Status: Current some day smoker, Vaper Past Alcohol Use History: Occasional Past Drug Use History: Marijuana <Marlen Márquez - Last Filed: 01/11/25 21:01> General Exam Limitations: no limitations <Marlen Márquez - Last Filed: 01/11/25 21:01> - General Exam Comments Initial Comments: Physical Exam GENERAL: Patient is well-developed and well-nourished. Patient is nontoxic and well-hydrated and is in no distress. HENT: Normocephalic, Atraumatic. EYES: PERRL, EOMI PULMONARY: Unlabored respirations. CARDIOVASCULAR: RRR Warm and well perfused extremities ABDOMEN: Soft, Non-distended SKIN: No rashes or bruising : Deferred NEUROLOGIC: Alert and oriented Normal speech Normal gait MUSCULOSKELETAL: Moving all extremities with no apparent injury PSYCHIATRIC: No SI/HI (Marlen Márquez) Course Vital Signs 01/11/25 18:43 Temperature 98.4 F Pulse Rate 69 Respiratory 18 Rate Blood Pressure 167/92 O2 Sat by Pulse 100 Oximetry Medical Decision Making - Lab Data Result diagrams: 01/11/25 20:05 <Marlen Márquez - Last Filed: 01/11/25 21:01> - Lab Data Result diagrams: 01/11/25 20:05 01/11/25 20:30 <Tiffani Roman - Last Filed: 01/11/25 22:09> - Medical Decision Making Was pt. sent in by a medical professional or institution (, PA, SALARY AND WAGE ADMINISTRATOR, urgent care, hospital, or custodial...) When possible be specific @ -No Did you speak to anyone other than the patient for history (EMS, parent, family, police, friend...)? What history was obtained from this source @ -No Did you review nursing and triage notes (agree or disagree)? Why? @ -I reviewed and agree with nursing and triage notes Were old charts reviewed (outside hosp., previous admission, EMS record, old EKG, old radiological studies, urgent care reports/EKG's, custodial records)? Report findings @ -Previous visit and imaging reviewed Differential Diagnosis (chest pain, altered mental status, abdominal pain women, abdominal pain men, vaginal bleeding, weakness, fever, dyspnea, syncope, headache, dizziness, GI bleed, back pain, seizure, CVA, palpatations, mental health)? @ -Differential Vaginal Bleeding: Spontaneous , threatened , molar , ectopic , bloody show, incompetent cervix, abruptioplacenta, placenta previa, uterine rupture, dysfunctional uterine bleeding, hemorrhage, uterine fibroids, this is not meant to be an all-inclusive list. EKG interpreted by me (3pts min.). @ -As above X-rays interpreted by me (1pt min.). @ -None done CT interpreted by me (1pt min.). @ -None done U/S interpreted by me (1pt. min.). @ -None done What testing was considered but not performed or refused? (CT, X-rays, U/S, labs)? Why? @ -None What meds were considered but not given or refused? Why? @ -None Did you discuss the management of the patient with other professionals (profe deeonals i.e. , PA, SALARY AND WAGE ADMINISTRATOR, lab, RT, psych nurse, high school social studies tutor, analyst geochemical prospecting, teacher, [place] police officer, residential real estate sales manager)? Give summary @ -No Was smoking cessation discussed for >3mins.? @ -No Was critical care preformed (if so, how long)? @ -No Were there social determinants of health that impacted care today? How? (Homelessness, low income, unemployed, alcoholism, drug addiction, transportation, low edu. Level, literacy, decrease access to med. care, prison, rehab)? @ -No Was there de-escalation of care discussed even if they declined (Discuss DNR or withdrawal of care, Hospice)? DNR status @ -No What co-morbidities impacted this encounter? (DM, HTN, Smoking, COPD, CAD, Cancer, CVA, ARF, Chemo, Hep., AIDS, mental health diagnosis, sleep apnea, morbid obesity)? @ -None Was patient admitted / discharged? Hospital course, mention meds given and route, prescriptions, significant lab abnormalities, going to OR and other pertinent info. @ -The patient was seen and evaluated, history is obtained from patient, patient with persistent vaginal bleeding, a little bit worse bleeding and cramping today. No concern for aside from the fact that she reports a positive test in September and no follow-up. Labs including beta hCG were obtained as well as a pelvic ultrasound. Undiagnosed new problem with uncertain prognosis? @ -No Drug Therapy requiring intensive monitoring for toxicity (Heparin, Nitro, Insulin, Cardizem)? @ -No Were any procedures done? @ -No Diagnosis/symptom? @ -Vaginal bleeding Acute, or Chronic, or Acute on Chronic? @ -Default Uncomplicated (without systemic symptoms) or Complicated (systemic symptoms)? @ -Default Side effects of treatment? @ -No Exacerbation, Progression, or Severe Exacerbation? @ -No Poses a threat to life or bodily function? How? (Chest pain, [place], [place], pneumonia, PE, COPD, DKA, ARF, appy, cholecystitis, CVA, Diverticulitis, Homicidal, Suicidal, threat to staff... and all critical care pts) @ -No (Marlen Márquez) Patient was signed out to myself pending completion of labs and ultrasound. Ultrasound was remarkable for a small amount of free fluid in the pelvis likely physiologic as well as multiple follicles on both ovaries. Labs show no anemia and are reassuring. Beta-hCG undetectable. I updated patient to these findings and discussed with her potential additional options for women's health clinics if unable to get in to see [facility]. We discussed signs symptoms warranti ng return to the urgency department patient verbalized agreement understanding plan In my medical judgment there is currently no evidence of an immediate life- threatening or surgical condition. Discharge is therefore indicated at this time. [Discharge treatment instructions, follow up instructions, and appropriate emergency department return precautions were discussed with the patient and/or medical decision maker. Patient and/or medical decision maker expressed understanding of and agreed with the treatment plan, follow up instructions, and emergency department return precaution. All patient's and/or medical decision maker's questions were answered.] [The patient was instructed to return to the ED for any changes in symptoms, persistent symptoms, inability to obtain proper follow-up or for any further concerns. Patient received verbal and written instructions for this condition.] (Tiffani Roman) - Lab Data Lab Results 01/11/25 01/11/25 01/11/25 Range/Units 19:32 20:05 20:30 WBC 5.8 (3.8-10.6) k/uL RBC 4.67 (3.80-5.40) m/uL Hgb 14.5 (11.4-16.0) gm/dL Hct 44.8 (34.0-46.0) % MCV 95.9 (80.0-100.0) fL MCH 31.1 (25.0-35.0) pg MCHC 32.4 (31.0-37.0) g/dL RDW 12.7 (11.5-15.5) % Plt Count 255 (150-450) k/uL MPV 7.1 Neutrophils % 54 % Lymphocytes % 39 % Monocytes % 5 % Eosinophils % 1 % Basophils % 0 % Neutrophils # 3.1 (1.3-7.7) k/uL Lymphocytes # 2.2 (1.0-4.8) k/uL Monocytes # 0.3 (0-1.0) k/uL Eosinophils # 0.1 (0-0.7) k/uL Basophils # 0.0 (0-0.2) k/uL PT 10.7 (10.0-12.5) sec INR 1.0 (<1.2) APTT 21.8 L (22.0-30.0) sec Sodium 136 L (137-145) mmol/L Potassium 4.2 (3.5-5.1) mmol/L Chloride 105 (98-107) mmol/L Carbon Dioxide 24 (22-30) mmol/L Anion Gap 7 mmol/L BUN 11 (7-17) mg/dL Creatinine 0.67 (0.52-1.04) mg/dL Est GFR (CKD-EPI)AfAm >90 (>60 ml/min/1.73 sqM) Est GFR (CKD-EPI)NonAf >90 (>60 ml/min/1.73 sqM) Glucose 79 (74-99) mg/dL Calcium 9.2 (8.4-10.2) mg/dL Total Bilirubin 1.3 (0.2-1.3) mg/dL AST 22 (14-36) U/L ALT 18 (4-34) U/L Alkaline Phosphatase 54 (38-126) U/L Total Protein 6.7 (6.3-8.2) g/dL Albumin 3.8 (3.5-5.0) g/dL HCG, Quant <2.4 mIU/mL Disposition <Marlen Márquez - Last Filed: 01/11/25 21:01> Is patient prescribed a controlled substance at d/c from ED?: No When asked, does pt state using other controlled substances?: No <Tiffani Roman - Last Filed: 01/11/25 22:09> Clinical Impression: Dysfunctional uterine bleeding Disposition: HOME SELF-CARE Condition: Stable Instructions (If sedation given, give patient instructions): Dysmenorrhea (ED) Additional Instructions: Every disease is a spectrum and a small chance still exists that a serious condition could develop, for this reason, please monitor yourself closely for new, changing or worsening symptoms, symptoms that do not improve in 48 hours, bleeding through more than 1 pad or tampon an hour for greater than 2 hours, lightheadedness or dizziness, shortness of breath, severe abdominal pain [fever], inability to tolerate/keep down fluids or your medications, inability to follow up with outpatient providers as instructed and should you experience these symptoms or should you have any further concerns for your wellbeing please return to the ED or call 911 immediately. Please contact [facility] or local family planning clinics for possible alternative options if you are unable to get in to see and [facility]. PLEASE call your primary care physician as soon as possible to arrange / discuss plan for followup appointment. Appointment in the next 1-3 days is strongly encouraged if possible. PLEASE let us know here before you leave if there is anything further we can do to be of any assistance. Take care and feel Better! Referrals: Cole Harmon MD [Primary Care Provider] - 1-2 days Forms: Area PCPs
[2025-01-11 20:24] LABS: Basophils % (A) 0 %; Eosinophils # (A) 0.1 k/uL (0-0.7); Eosinophils % (A) 1 %; HCT 44.8 % (34.0-46.0); HGB 14.5 gm/dL (11.4-16.0); Lymphocytes # (A) 2.2 k/uL (1.0-4.8); Lymphocytes % (A) 39 %; MCH 31.1 pg (25.0-35.0); MCHC 32.4 g/dL (31.0-37.0); MCV 95.9 fL (80.0-100.0); Mean Platelet Volume 7.1; Monocytes # (A) 0.3 k/uL (0-1.0); Monocytes % (A) 5 %; Neutrophils # (A) 3.1 k/uL (1.3-7.7); Neutrophils % (A) 54 %; Platelet Count 255 k/uL (150-450); RBC 4.67 m/uL (3.80-5.40); RDW 12.7 % (11.5-15.5); WBC 5.8 k/uL (3.8-10.6)
[2025-01-11 20:25] LABS: Prothrombin Time 10.7 sec (10.0-12.5)
[2025-01-11 20:28] LABS: Partial Thromboplastin Time 21.8 sec (22.0-30.0)
--- NOTE | 2025-01-11 21:06 | US ---
EXAMINATION TYPE: US pelvis complete transvag DATE OF EXAM: 01/11/2025 COMPARISON: US 2023 CLINICAL INDICATION: Female, 24 years old with history of vaginal bleeding, cramping; Bleeding x 1 ye ar TECHNIQUE: Transvaginal (TV). FINDINGS: Date of LMP: Patient unsure of her last normal/regular period EXAM MEASUREMENTS: Uterus: 6.5 x 4.6 x 3.3 cm Endometrial Stripe: 0.7 cm Right Ovary: 3.9 x 2.4 x 2.2 cm Left Ovary: 3.0 x 1.8 x 2.1 cm 1. Uterus: retroverted 2. Endometrium: appears wnl 3. Right Ovary: multiple follicles 4. Left Ovary: multiple follicles Spectral, color and waveform doppler imaging shows good arterial and venous flow within the ovaries ; there is no evidence for ovarian torsion. 5. Bilateral Adnexa: wnl 6. Posterior cul-de-sac: Small volume free fluid, likely physiologic related. IMPRESSION: Unremarkable pelvic ultrasound exam. [facility], , 01/11/2025 9:04 PM
[2025-01-11 21:15] LABS: ALT 18 U/L (4-34); AST 22 U/L (14-36); African American GFR (CKD) >90 (>60 ml/min/1.73 sqM); Albumin 3.8 g/dL (3.5-5.0); Alkaline Phosphatase 54 U/L (38-126); Anion Gap 7 mmol/L; Blood Urea Nitrogen 11 mg/dL (7-17); Calcium 9.2 mg/dL (8.4-10.2); Carbon Dioxide 24 mmol/L (22-30); Chloride 105 mmol/L (98-107); Glucose 79 mg/dL (74-99); Non-African American GFR(CKD) >90 (>60 ml/min/1.73 sqM); Potassium 4.2 mmol/L (3.5-5.1); Sodium 136 mmol/L (137-145); Total Bilirubin 1.3 mg/dL (0.2-1.3); Total Protein 6.7 g/dL (6.3-8.2)
[2025-01-11 21:44] LABS: HCG,Quantitative Serum <2.4 mIU/mL
[2025-01-11 22:21] VITALS: BP 139/83; PULSE 58; TEMP 98
== END 2025-01-11 22:21 | disposition home or self-care (01) ==
LOC: EC 18:40
DX: N93.8 Other specified abnormal uterine and vaginal bleeding (principal); F17.290 Nicotine dependence, other tobacco product, uncomplicated; Z88.0 Allergy status to penicillin
CPT/HCPCS: 36415; 76830; 76856; 80053; 84702; 85025; 85610; 85730; 93975; 99284